=== PATIENT | male | born 1945 | race Caucasian/White ===

== ENCOUNTER 2020-01-04 17:29 | Inpatient (IN) ==
--- NOTE | 2020-01-04 17:47 | ED.PDOC ---
General ED Provider: Dr. FRIDA GARCIA Chief Complaint: Shortness of Air Stated Complaint: Shortness of breath. Family advised paramedics patient fell earlier and injured rt knee. Pt denies injury. EMS reports O 2 sat decreased to 30-40 % upon arrival.Pts daughter states pt normally hypoxic with O2 stats running in the 60s-70s .No home oxygen. He was found lying in the floor and lips were cyanotic PMHx, HTN ,COPD ?CHF Time Seen by Physician: 17:30 Mode of Arrival: Ambulance Information Source: Patient Exam Limitations: Clinical condition Primary Care Provider: ANGY DANIELSON Nursing and Triage Documentation Reviewed and Agree: Yes Does patient meet sepsis criteria?: No System Inflammatory Response Syndrome: Not Applicable Sepsis Protocol: For patient's 13 years and over: Temp is 96.8 and below OR 101 and greater Pulse >90 BPM Resp >20/minute Acutely Altered Mental Status Are patient's symptoms suggestive of a new infection, such as: -Pneumonia -Skin, Soft Tissue -Endocarditis -UTI -Bone, Joint Infection -Implantable Device -Acute Abdominal Infection -Wound Infection -Meningitis -Blood Stream Catheter Infection -Unknown Respiratory Complaint Exam Shortness of Air Complaint/Exam Onset/Duration: Chronically Symptoms Are: Still present Timing: Constant Initial Severity: Moderate Current Severity: Moderate Character: Reports Dyspnea at rest Aggravating: Reports Movement Alleviating: Reports Oxygen Review of Systems Review Of Systems Constitutional: Reports Weakness, Sweats and Loss of appetite Eyes: Reports No symptoms Ears, Nose, Mouth, Throat: Reports No symptoms Respiratory: Reports Cough, Orthopnea and Short of air Cardiac: Reports Edema GI: Reports No symptoms : Reports No symptoms Musculoskeletal: Reports No symptoms Skin: Reports No symptoms Neurological: Reports No symptoms Endocrine: Reports No symptoms Hematologic/Lymphatic: Reports No symptoms All Other Systems: Reviewed and Negative [facility] Medical History High cholesterol Hypertension Traumatic brain injury Social History Smoking and tobacco status: Never smoker Alcohol intake: never History of recent travel: No Physical Exam Physical Exam Appearance: Reports Ill-appearing and Obese Ill-appearing: Moderate Pain Distress: Mild Eyes: Reports SHERIN, EOMI and Conjunctiva clear ENT: Reports Ears normal, Nose normal and Oropharynx normal Respiratory: Reports Airway patent, Breath sounds clear, Breath sounds equal and Breath sounds diminished; Denies Crackles, Wheezes and Retractions Cardiovascular: Reports RRR, Pulses normal, No rub and No murmur GI/: Reports Soft, Nontender, No masses, Bowel sounds normal and No Organomegaly Musculoskeletal: Reports Normal strength, ROM intact, No edema and No calf tenderness Skin: Reports Warm, Dry, Normal color and Other (area of rt ankle eval and appears to be well healed.) Neurological: Reports Sensation intact, Motor intact, Reflexes intact, Cranial nerves intact, Alert and Oriented Psychiatric: Reports Affect appropriate and Mood appropriate Interpretation Radiology Interpretation Exam Interpreted: Portable CXR (Prominent cardiomediastinal silhouette with prominence in the hilum with ground-glass and may represent bronchitis versus mild pulmonary vascular congestion.) and Other (Doppler Flow Lower Extrem:Obstructing thrombus of the popliteal and peroneal veins on the left. Remainder of the Visualized vessels are patent to spontaneous flow, compression and augmentation. ) EKG Interpretation Time of EKG #1: 17:53 Rate: Normal Rhythm: Sinus Ectopy: None Nixon: Left ST Segment: Normal Interpretation: NSR, LAD Physician Notification Case Discussed Physician Notified: Dr Wallace pts daughter desired Time of Notification: 17:00 Physician Notified: Dr Mckeon patient through admission Time of Notification: 19:00 Critical Care Note Critical Care Note Total Critical Care Time (mins): 60 Course Course Hematology/Chemistry: 01/09/20 04:50 01/09/20 04:50 Orders, Labs, Meds: Lab Review 01/04/20 01/04/20 01/04/20 17:50 18:06 18:06 WBC 9.04 RBC 5.70 Hgb 16.8 Hct 56.7 H MCV 99.5 H MCH 29.5 MCHC 29.6 L RDW Coeff of Salud 14.1 Plt Count 187 Immature Gran % (Auto) 0.6 Neut % (Auto) 81.7 H Lymph % (Auto) 9.3 L [place] % (Auto) 8.0 Eos % (Auto) 0.2 Baso % (Auto) 0.2 Neut # (Auto) 7.4 H Lymph # (Auto) 0.8 [place] # (Auto) 0.7 Eos # (Auto) 0.0 Baso # (Auto) 0.0 Immature Gran # (Auto) 0.1 Puncture Site L rad O2 Saturation 82.0 L ABG pH 7.284 L* ABG pCO2 86.9 H ABG pO2 56.0 L* ABG HCO3 41.2 H ABG Total CO2 44 H ABG Base Excess 14 H Forrest Test + O2 Delivery Device Nc Oxygen Liter Flow 2.00 FiO2 % Sodium 140.3 Potassium 4.23 Chloride 93.2 L Carbon Dioxide 37.8 H Anion Gap 13.53 BUN 41.7 H Creatinine 1.34 H Estimated GFR (MDRD) 52.00 BUN/Creatinine Ratio 31.11 Glucose 136.8 H Lactic Acid Calcium 8.60 Total Bilirubin 1.49 H AST 49.4 ALT 20.0 Alkaline Phosphatase 78.5 Total Creatine Kinase 341.6 H CK-MB (CK-2) 2.520 H CK-MB (CK-2) % 0.7300 Troponin I 0.122 H NT-Pro-B Natriuret Pep Total Protein 8.40 H Albumin 4.10 Globulin 4.30 Albumin/Globulin Ratio 0.95 Procalcitonin D-Dimer 01/04/20 01/04/20 01/04/20 18:06 18:06 18:06 WBC RBC Hgb Hct MCV MCH MCHC RDW Coeff of Salud Plt Count Immature Gran % (Auto) Neut % (Auto) Lymph % (Auto) [place] % (Auto) Eos % (Auto) Baso % (Auto) Neut # (Auto) Lymph # (Auto) [place] # (Auto) Eos # (Auto) Baso # (Auto) Immature Gran # (Auto) Puncture Site O2 Saturation ABG pH ABG pCO2 ABG pO2 ABG HCO3 ABG Total CO2 ABG Base Excess Forrest Test O2 Delivery Device Oxygen Liter Flow FiO2 % Sodium Potassium Chloride Carbon Dioxide Anion Gap BUN Creatinine Estimated GFR (MDRD) BUN/Creatinine Ratio Glucose Lactic Acid 1.32 Calcium Total Bilirubin AST ALT Alkaline Phosphatase Total Creatine Kinase CK-MB (CK-2) CK-MB (CK-2) % Troponin I NT-Pro-B Natriuret Pep Total Protein Albumin Globulin Albumin/Globulin Ratio Procalcitonin 0.21 D-Dimer 3942.68 H 01/04/20 01/04/20 18:40 19:05 WBC RBC Hgb Hct MCV MCH MCHC RDW Coeff of Salud Plt Count Immature Gran % (Auto) Neut % (Auto) Lymph % (Auto) [place] % (Auto) Eos % (Auto) Baso % (Auto) Neut # (Auto) Lymph # (Auto) [place] # (Auto) Eos # (Auto) Baso # (Auto) Immature Gran # (Auto) Puncture Site Rrad O2 Saturation 88.0 L ABG pH 7.289 L* ABG pCO2 84.7 H ABG pO2 65.0 L ABG HCO3 40.6 H ABG Total CO2 43 H ABG Base Excess 14 H Forrest Test + O2 Delivery Device Vapo-therm Oxygen Liter Flow FiO2 % 50.0 Sodium Potassium Chloride Carbon Dioxide Anion Gap BUN Creatinine Estimated GFR (MDRD) BUN/Creatinine Ratio Glucose Lactic Acid Calcium Total Bilirubin AST ALT Alkaline Phosphatase Total Creatine Kinase CK-MB (CK-2) CK-MB (CK-2) % Troponin I NT-Pro-B Natriuret Pep 0.000 H Total Protein Albumin Globulin Albumin/Globulin Ratio Procalcitonin D-Dimer Orders Category Date Time Status ADMIT PATIENT INPATIENT .TO [facility] (MONITORED BED) ADMISSION 01/04/20 19:56 Completed ABG DRAW REQUEST Stat CARDIO 01/04/20 17:50 Completed ABG DRAW REQUEST Stat CARDIO 01/04/20 19:06 Completed EKG-(ED ONLY) Stat CARDIO 01/04/20 17:50 Completed METERED DOSE INHALATION Routine CARDIO 01/04/20 17:49 Completed VAPOTHERM Routine CARDIO 01/04/20 17:53 Completed ACTIVITY TID CARE 01/04/20 19:59 Completed BLOOD GLUCOSE MONITORING 0630,1100,1700,2100 CARE 01/04/20 20:00 Completed INTAKE & OUTPUT Q8HR CARE 01/04/20 19:59 Completed NPO REMINDER: IMAGING ONCE CARE 01/04/20 19:40 Completed TELEMETRY MONITORING TELE CARE 01/04/20 19:57 Completed VITAL SIGNS Q8HR CARE 01/04/20 19:59 Completed 2 GRAM SODIUM DIET DIETARY 01/04/20 Breakfast Completed IV [ED IV/MEDIPORT/POWERPORT] .ONCE EMERGENCY 01/04/20 17:57 Completed ABG Stat LAB 01/04/20 17:50 Completed ABG Stat LAB 01/04/20 19:05 Completed BLOOD CULTURE (ED ONLY) Stat LAB 01/04/20 18:06 Completed CBC W/ AUTO DIFF DAILY@0600 LAB 01/05/20 02:00 Completed CBC W/ AUTO DIFF DAILY@0600 LAB 01/06/20 04:35 Completed CBC W/ AUTO DIFF Stat LAB 01/04/20 18:06 Completed CMP [COMPREHENSIVE METABOLIC PANEL] Stat LAB 01/04/20 18:06 Completed COMPREHENSIVE METABOLIC PANEL DAILY@0600 LAB 01/06/20 04:35 Completed CREATINE KINASE Stat LAB 01/04/20 18:06 Completed D-DIMER Stat LAB 01/04/20 18:06 Completed FLU A & B MOLECULAR [FLU A/B MOLECULAR] Stat LAB 01/04/20 23:15 Completed LACTIC ACID Stat LAB 01/04/20 18:06 Completed NT-PROBNP Stat LAB 01/04/20 18:40 Completed PROCALCITONIN Stat LAB 01/04/20 18:06 Completed TROPONIN I Q8H LAB 01/05/20 02:00 Completed TROPONIN I Q8H LAB 01/05/20 10:10 Completed TROPONIN I Stat LAB 01/04/20 18:06 Completed 0.9 % Sodium Chloride [Saline Flush] MEDS 01/04/20 17:57 Discontinued 1 syr IVF PRN PRN Acetaminophen [Tylenol] MEDS 01/04/20 19:59 Discontinued 650 mg PO Q4H PRN Albuterol Inhaler(with Spacer) [Ventolin Hfa (Per Puff- MEDS 01/04/20 17:49 Discontinued with Spacer)] 2 puff IH ONCE STA Enoxaparin Sodium [Lovenox] MEDS 01/04/20 19:35 Discontinued 100 mg SUBCUT ONCE STA Furosemide [Lasix] MEDS 01/04/20 19:28 Discontinued 20 mg IVP ONCE STA Methylprednisolone Sod Succ/Pf [Solu-Medrol 125 mg] MEDS 01/04/20 18:03 Discontinued 125 mg IVP ONCE STA RESUSCITATION STATUS Routine OTHERS 01/04/20 19:59 Completed CHEST, 1V AP ONLY Stat RADS 01/04/20 17:[address] CHEST PE PROTOCOL Stat RADS 01/04/20 19:40 Completed Medications Discontinued Medications Generic Name Dose Route Start Last Admin Trade Name Freq PRN Reason Stop Dose Admin Acetaminophen 650 mg 01/04/20 19:59 01/08/20 10:13 Acetaminophen 325 Mg Tablet PO 650 mg Q4H PRN Administration Pain Albuterol Sulfate 2 puff 01/04/20 17:49 01/04/20 19:01 Albuterol Sulfate (Ventolin Hfa) 18 Gm 1 Puff With Spacer IH 01/04/20 17:50 2 puff ONCE STA Administration Amlodipine Besylate 5 mg 01/05/20 09:00 01/09/20 09:18 Amlodipine Besylate 5 Mg Tablet PO 5 mg DAILY SILVERIO Administration Apixaban 10 mg 01/06/20 09:00 01/09/20 09:19 Apixaban 5 Mg Tab PO 01/12/20 22:00 10 mg BID SILVERIO Administration Apixaban 10 mg 01/09/20 17:19 01/09/20 17:37 Apixaban 5 Mg Tab PO 01/09/20 17:20 10 mg ONCE STA Administration Atorvastatin Calcium 10 mg 01/05/20 09:00 01/09/20 09:18 Atorvastatin Calcium 10 Mg Tablet PO 10 mg DAILY SILVERIO Administration Doxycycline Hyclate 100 mg 01/05/20 09:00 01/05/20 09:45 Doxycycline Hyclate 100 Mg Capsule PO 01/08/20 08:59 Not Given BID SILVERIO Doxycycline Hyclate 100 mg 01/09/20 17:20 01/09/20 17:37 Doxycycline Hyclate 100 Mg Capsule PO 01/09/20 17:21 100 mg ONCE ONE Administration Enoxaparin Sodium 100 mg 01/04/20 19:35 01/04/20 20:00 Enoxaparin Sodium 100 Mg/Ml Syr SUBCUT 01/04/20 19:36 100 mg ONCE STA Administration Enoxaparin Sodium 120 mg 01/05/20 09:00 01/05/20 20:39 Enoxaparin Sodium 150 Mg/Ml Syr SUBCUT 120 mg Q12HR SILVERIO Administration Furosemide 20 mg 01/04/20 19:28 01/04/20 19:58 Furosemide Inj 20 Mg/2 Ml Vial IVP 01/04/20 19:29 20 mg ONCE STA Administration Hydrochlorothiazide 12.5 mg 01/05/20 09:00 01/09/20 09:19 Hydrochlorothiazide 25 Mg Tablet PO 12.5 mg DAILY SILVERIO Administration Methylprednisolone Sodium Succinate 125 mg 01/04/20 18:03 01/04/20 18:29 Methylprednisolone Sod Succ/Pf 125 Mg/2 Ml Vial IVP 01/04/20 18:04 125 mg ONCE STA Administration Sodium Chloride 1 syr 01/04/20 17:57 01/04/20 18:30 0.9% Sodium Chloride 10 Ml Disp.Syrin IVF 1 syr PRN PRN Administration To flush IV Sodium Chloride 1 syr 01/05/20 21:00 01/08/20 13:45 0.9% Sodium Chloride 10 Ml Disp.Syrin IVF 1 syr Q8HR SILVERIO Administration Vital Signs: Temp Pulse Resp BP Pulse Ox 01/04/20 18:16 92 L 01/04/20 17:29 98.5 F 93 H 24 137/94 H 85 L Discharge Plan Discharge Patient Disposition: ADMITTED INPATIENT Discharge Problem: Respiratory failure, CHF (congestive heart failure), DVT (deep venous thrombos is) ED Provider: FRIDA GARCIA Condition: Poor Physician Progress Note: [] Additional Comments Additional Comments: Discussed case with Dr Morfin who agreed to accept patient. Patients daughter who is present advised he is a DNR and Refuse consideration of transfer to a higher level of care([facility]). Prefers pt be admitted at [facility]. Has been under care of wound care and regarding Rt ankle wound and was recently released. Additional Information: Daughter present and advised she did not want pt transferred to [facility] Has a DNR in place
[2020-01-04] MEDS ORDERED: VENTOLIN HFA (PER PUFF-WITH SPACER) IH STA (17:49)
[2020-01-04] MEDS ORDERED: SOLU-MEDROL 125 MG IVP STA (18:03)
[2020-01-04 18:09] LABS: BASOPHILS % (AUTO) 0.2 % (0.0-3.0); EOSINOPHILS % (AUTO) 0.2 % (0.0-7.0); HEMATOCRIT 56.7 % (42.0-52.0); HEMOGLOBIN 16.8 g/dl (14.0-18.0); IMMATURE GRANULOCYTE # (AUTO) 0.1 (0.0-1.0); IMMATURE GRANULOCYTE % (AUTO) 0.6 % (0.0-5.0); LYMPHOCYTES # (AUTO) 0.8 K/uL (0.60-3.4); LYMPHOCYTES % (AUTO) 9.3 (10.0-50.0); MEAN CORPUSCULAR HEMOGLOBIN 29.5 pg (27.0-31.0); MEAN CORPUSCULAR HGB CONC 29.6 (31.8-35.4); MEAN CORPUSCULAR VOLUME 99.5 fl (80.0-94.0); MONOCYTES # (AUTO) 0.7 K/uL (0.4-2.0); NEUTROPHILS # (AUTO) 7.4 K/ul (2.0-6.9); NEUTROPHILS % (AUTO) 81.7 % (42.2-75.2); PLATELET COUNT 187 10^3/uL (140-440); RDW COEFFICIENT OF VARIATION 14.1 % (11.6-14.8); WHITE BLOOD COUNT 9.04 K/ul (4.2-10.2)
[2020-01-04 18:22] LABS: ALBUMIN 4.1 g/dL (3.5-5.0); ALKALINE PHOSPHATASE 78.5 U/L (56-119); ASPARTATE AMINO TRANSFERASE 49.4 U/L (17-59); BILIRUBIN,TOTAL 1.49 mg/dL (0.2-1.3); BLOOD UREA NITROGEN 41.7 mg/dL (9-20); CALCIUM 8.6 mg/dL (8.4-10.2); CHLORIDE 93.2 mmol/L (98-107); CREATINE KINASE 341.6 U/L (55-170); CREATININE 1.34 mg/dL (0.60-1.10); GLUCOSE 136.8 mg/dL (74-106); POTASSIUM 4.23 mmol/L (3.5-5.1); SODIUM 140.3 mmol/L (134.5-145); TOTAL PROTEIN 8.4 g/dL (6.3-8.2)
[2020-01-04 18:23] LABS: ABG BASE EXCESS 14 (-2.0-2.0); ABG PCO2 86.9 mmHg (35-45); ABG PH 7.284 (7.35-7.45)
[2020-01-04 18:24] LABS: ABG HCO3 41.2 (22.0-26.0); ABG TCO2 44 (22.0-28.0)
[2020-01-04 18:28] LABS: CARBON DIOXIDE 37.8 mmol/L (22-30.0)
[2020-01-04 18:33] LABS: TROPONIN I 0.122 ng/ml (0.0000-0.120)
[2020-01-04 18:39] LABS: CREATINE KINASE MB 2.52 ng/ml (0.0-2.38)
[2020-01-04 19:25] LABS: ABG PH 7.289 (7.35-7.45)
[2020-01-04 19:26] LABS: ABG BASE EXCESS 14 (-2.0-2.0); ABG HCO3 40.6 (22.0-26.0); ABG PCO2 84.7 mmHg (35-45); ABG TCO2 43 (22.0-28.0)
--- NOTE | 2020-01-04 19:26 | DI ---
EXAM: Single frontal view of the chest HISTORY: Dyspnea. COMPARISON: Chest x-ray 12/18/2013 FINDINGS: Cardiomediastinal silhouette is mildly enlarged. There is no pneumothorax or effusion. Th ere is no consolidation, nodule or mass. There is mild central hilar prominence and ground-glass. Th e osseous structures are unremarkable. IMPRESSION: Prominent cardiomediastinal silhouette with prominence in the hilum with ground-glass and may represe nt bronchitis versus mild pulmonary vascular congestion.
[2020-01-04] MEDS ORDERED: LASIX IVP STA (19:28)
[2020-01-04] MEDS ORDERED: LOVENOX SUBCUT STA (19:35)
--- NOTE | 2020-01-04 21:25 | CT ---
EXAM: CT angiogram chest with intravenous contrast 01/04/2020. Multi planar reformatted images obta ined. MIP and three-dimensional reconstructed images provided HISTORY: Shortness of a air. Elevated D-dimer COMPARISON: 01/04/2020, 12/08/2013 FINDINGS: Moderate cardiomegaly. There are multiple pulmonary arterial filling defects extending to the right upper, right middle and right lower lobe. No large left-sided embolus. Small subsegmental arterial branches are obscured du e to motion. Bilateral dependent consolidation may represent a combination of atelectasis and/or pneumonia. Pulmo nary infarcts not excluded. No pleural effusion. No pneumothorax. Limited views of the upper abdomen shows no acute process. No acute osseous abnormality. IMPRESSION: 1. Multiple right-sided pulmonary emboli. 2. Moderate cardiomegaly 3. Bilateral multifocal consolidation may represent a combination of atelectasis and/or pneumonia. Infarcts not excluded. Critical FINDINGS: I personally discussed the findings of multiple right-sided pulmonary emboli with HELENA Kingsley, 01/04/2020, 9:18 p.m.
[2020-01-04 22:07] VITALS: BMI 46.7
[2020-01-04 23:32] LABS: MOLECULAR FLU A NEGATIVE BY NAAT (NEGATIVE); MOLECULAR FLU B NEGATIVE BY NAAT (NEGATIVE)
[2020-01-05 02:05] LABS: BASOPHILS % (AUTO) 0.2 % (0.0-3.0); HEMATOCRIT 57.6 % (42.0-52.0); HEMOGLOBIN 16.8 g/dl (14.0-18.0); IMMATURE GRANULOCYTE # (AUTO) 0.1 (0.0-1.0); IMMATURE GRANULOCYTE % (AUTO) 0.5 % (0.0-5.0); LYMPHOCYTES # (AUTO) 0.6 K/uL (0.60-3.4); LYMPHOCYTES % (AUTO) 6.9 (10.0-50.0); MEAN CORPUSCULAR HEMOGLOBIN 29.3 pg (27.0-31.0); MEAN CORPUSCULAR HGB CONC 29.2 (31.8-35.4); MEAN CORPUSCULAR VOLUME 100.5 fl (80.0-94.0); MONOCYTES # (AUTO) 0.1 K/uL (0.4-2.0); MONOCYTES % (AUTO) 1.2 (0-10); NEUTROPHILS # (AUTO) 8.4 K/ul (2.0-6.9); NEUTROPHILS % (AUTO) 91.2 % (42.2-75.2); PLATELET COUNT 171 10^3/uL (140-440); RDW COEFFICIENT OF VARIATION 13.9 % (11.6-14.8); RED BLOOD COUNT 5.73 10^6/ul (4.70-6.10); WHITE BLOOD COUNT 9.17 K/ul (4.2-10.2)
[2020-01-05 02:17] LABS: ALANINE AMINOTRANSFERASE 22.6 U/L (0-50); ALBUMIN 4.12 g/dL (3.5-5.0); ALKALINE PHOSPHATASE 74.5 U/L (56-119); ASPARTATE AMINO TRANSFERASE 44.9 U/L (17-59); BILIRUBIN,TOTAL 1.18 mg/dL (0.2-1.3); BLOOD UREA NITROGEN 41.9 mg/dL (9-20); CALCIUM 8.48 mg/dL (8.4-10.2); CARBON DIOXIDE 39.4 mmol/L (22-30.0); CHLORIDE 94.9 mmol/L (98-107); CREATININE 1.28 mg/dL (0.60-1.10); GLUCOSE 182.4 mg/dL (74-106); POTASSIUM 4.79 mmol/L (3.5-5.1); SODIUM 140.9 mmol/L (134.5-145); TOTAL PROTEIN 8.38 g/dL (6.3-8.2)
[2020-01-05 02:29] LABS: TROPONIN I 0.09 ng/ml (0.0000-0.120)
[2020-01-05 05:03] LABS: ABG BASE EXCESS 13 (-2.0-2.0); ABG HCO3 41.8 (22.0-26.0); ABG PCO2 116.9 mmHg (35-45); ABG PH 7.162 (7.35-7.45); ABG TCO2 45 (22.0-28.0)
[2020-01-05 05:57] LABS: ABG PCO2 100.8 mmHg (35-45); ABG PH 7.222 (7.35-7.45)
[2020-01-05 05:58] LABS: ABG BASE EXCESS 14 (-2.0-2.0); ABG HCO3 41.5 (22.0-26.0); ABG TCO2 45 (22.0-28.0)
[2020-01-05 07:07] LABS: ABG BASE EXCESS 18.1 (-2.0-2.0); ABG PH 7.21 (7.35-7.45)
[2020-01-05 07:08] LABS: ABG OXYGEN SATURATION 95.5 % (95-100); ABG TCO2 49.5 (22.0-28.0)
[2020-01-05 08:34] LABS: ABG PH 7.23 (7.35-7.45)
[2020-01-05 08:35] LABS: ABG BASE EXCESS 18 (-2.0-2.0); ABG HCO3 45.6 (22.0-26.0); ABG OXYGEN SATURATION 94.3 % (95-100); ABG TCO2 48.9 (22.0-28.0)
[2020-01-05] MEDS ORDERED: DOXYCYCLINE HYCLATE PO SCH (09:00)
[2020-01-05] MEDS ORDERED: SODIUM CHLORIDE 1,000 ML IV SCH (09:00)
[2020-01-05] MEDS: LIPITOR PO SCH (09:55)
[2020-01-05] MEDS: NORVASC PO SCH (09:55)
[2020-01-05] MEDS: HYDROCHLOROTHIAZIDE PO SCH (09:55)
[2020-01-05] MEDS: LOVENOX SUBCUT SCH ×2 (10:10→20:39)
--- NOTE | 2020-01-05 12:34 | US ---
Bilateral lower extremity venous Doppler HISTORY: Pain and tenderness Bilateral lower extremity. TECHNIQUE: Color, grayscale and spectral Doppler of Lower Extremity Veins. FINDINGS: Lower extremity venous structures examined for spontaneous flow, compression and augmentat ion. The common femoral vein, and greater saphenous, profunda, femoral, popliteal, peroneal, anterio r tibial and posterior tibial veins were examined. Obstructing thrombus of the popliteal and peronea l veins on the left. Remainder of the Visualized vessels are patent to spontaneous flow, compression and augmentation. IMPRESSION: 1.. Critical result: Obstructing thrombus of the left popliteal and peroneal vein. 2. No venous thrombus seen on the right. The ultra sound technician documented positive results were given to patient nurse at at the end of exam.
--- NOTE | 2020-01-05 12:40 | US ---
EXAM: Ultrasound venous Doppler bilateral upper extremity HISTORY: The blood clots COMPARISON: None TECHNIQUE: Venous Doppler of the bilateral upper extremity veins was performed with duplex imaging u sing color, corey-scale and Doppler flow imaging. FINDINGS: There is normal color flow and compression of the bilateral jugular, subclavian, axillary, brachial, cephalic, radial, and ulnar vein without evidence of intraluminal thrombus. Right basilic vein not visualized. Visualized left basilic vein trace normal compression and flow. Distal left b asilic and cephalic vein is not visualized. There is no reflux identified. IMPRESSION: No evidence of DVT within the bilateral upper extremities.
--- NOTE | 2020-01-05 20:29 | PCM ---
Chief Complaint Chief Complaint: "hes sob" History of Present Illness History of Present Illness: This is a 74 yr old male with hx of TBI, copd , obesity, htn and chf who presented to the ed by ems in resp failure. Subsequent evaluation reveals pulmonary embolism. Family declines transfer for consideation for EKOS and agreeable to tx here with lovenox and they undestand risk of complication. Review of Systems Constitutional: Reports No symptoms Eyes: Reports No symptoms Ears: Reports No symptoms Nose: Reports No symptoms Throat: Reports No symptoms Mouth: Reports No symptoms Respiratory: Reports Shortness of air Cardiovascular: Reports No symptoms Gastrointestinal: Reports No symptoms Genitourinary: Reports No symptoms Neurological: Reports No symptoms Musculoskeletal: Reports No symptoms Skin: Reports No symptoms Immunology: Reports No symptoms Hematology: Reports No symptoms Endocrine: Reports No symptoms Psychiatric: Reports Anxiety Habits: Reports Tobacco use Allergies Allergies Allergy/AdvReac Type Severity Reaction Status Date / Time No Known Allergies Allergy Verified 01/04/20 17:48 PFS Medical History High cholesterol Hypertension Traumatic brain injury Social History Smoking and tobacco status: Never smoker Alcohol intake: never History of recent travel: No Medications Medications: Medications Generic Name Dose Route Start Last Admin Trade Name Freq PRN Reason Stop Dose Admin Acetaminophen 650 mg 01/04/20 19:59 Acetaminophen 325 Mg Tablet PO Q4H PRN Pain Amlodipine Besylate 5 mg 01/05/20 09:00 01/05/20 09:55 Amlodipine Besylate 5 Mg Tablet PO 5 mg DAILY SILVERIO Administration Atorvastatin Calcium 10 mg 01/05/20 09:00 01/05/20 09:55 Atorvastatin Calcium 10 Mg Tablet PO 10 mg DAILY SILVERIO Administration Enoxaparin Sodium 120 mg 01/05/20 09:00 01/05/20 10:10 Enoxaparin Sodium 150 Mg/Ml Syr SUBCUT 120 mg Q12HR SILVERIO Administration Hydrochlorothiazide 12.5 mg 01/05/20 09:00 01/05/20 09:55 Hydrochlorothiazide 25 Mg Tablet PO 12.5 mg DAILY SILVERIO Administration Sodium Chloride 1 syr 01/04/20 17:57 01/04/20 18:30 0.9% Sodium Chloride 10 Ml Disp.Syrin IVF 1 syr PRN PRN Administration To flush IV Sodium Chloride 1 syr 10/23/20 21:00 0.9% Sodium Chloride 10 Ml Disp.Syrin IVF Q8HR SILVERIO Body Composition Height: 5 ft 9 in Weight: 316 lb 5.813 oz Body Mass Index (BMI): 46.7 Vital Signs Temperature: 98.3 F Pulse Rate: 72 Respiratory Rate: 20 Blood Pressure: 115/68 O2 Sat by Pulse Oximetry: 92 Physical Examination Appearance: Reports Obese Ill-appearing: None Pain Distress: Mild Eyes: Reports SHERIN, EOMI and Conjunctiva clear ENT: Reports Ears normal, Nose normal and Oropharynx normal Neck: Supple Respiratory: Reports Airway patent, Breath sounds clear and Breath sounds equal Cardiovascular: Reports RRR and Pulses normal GI/: Reports Soft and Nontender Musculoskeletal: Reports Normal strength, ROM intact and No edema Skin: Reports Warm, Dry and Normal color Neurological: Reports Sensation intact, Motor intact, Reflexes intact, Cranial nerves intact, Alert and Oriented Psychiatric: Reports Affect appropriate and Mood appropriate Lab/Tests/Diagnostic Imaging Lab/Tests/Diagnostic Imaging: Lab Review 01/04/20 01/04/20 01/04/20 17:50 18:06 18:06 WBC 9.04 RBC 5.70 Hgb 16.8 Hct 56.7 H MCV 99.5 H MCH 29.5 MCHC 29.6 L RDW Coeff of Salud 14.1 Plt Count 187 Immature Gran % (Auto) 0.6 Neut % (Auto) 81.7 H Lymph % (Auto) 9.3 L Leslie % (Auto) 8.0 Eos % (Auto) 0.2 Baso % (Auto) 0.2 Neut # (Auto) 7.4 H Lymph # (Auto) 0.8 Leslie # (Auto) 0.7 Eos # (Auto) 0.0 Baso # (Auto) 0.0 Immature Gran # (Auto) 0.1 Puncture Site L rad O2 Saturation 82.0 L ABG pH 7.284 L* ABG pCO2 86.9 H ABG pO2 56.0 L* ABG HCO3 41.2 H ABG Total CO2 44 H ABG Base Excess 14 H Forrest Test + O2 Delivery Device Nc Oxygen Liter Flow 2.00 FiO2 % Sodium 140.3 Potassium 4.23 Chloride 93.2 L Carbon Dioxide 37.8 H Anion Gap 13.53 BUN 41.7 H Creatinine 1.34 H Estimated GFR (MDRD) 52.00 BUN/Creatinine Ratio 31.11 Glucose 136.8 H Lactic Acid Calcium 8.60 Total Bilirubin 1.49 H AST 49.4 ALT 20.0 Alkaline Phosphatase 78.5 Total Creatine Kinase 341.6 H CK-MB (CK-2) 2.520 H CK-MB (CK-2) % 0.7300 Troponin I 0.122 H NT-Pro-B Natriuret Pep Total Protein 8.40 H Albumin 4.10 Globulin 4.30 Albumin/Globulin Ratio 0.95 Procalcitonin D-Dimer Influ A Molecular Assay Influ B Molecular Assay 01/04/20 01/04/20 01/04/20 18:06 18:06 18:06 WBC RBC Hgb Hct MCV MCH MCHC RDW Coeff of Salud Plt Count Immature Gran % (Auto) Neut % (Auto) Lymph % (Auto) Leslie % (Auto) Eos % (Auto) Baso % (Auto) Neut # (Auto) Lymph # (Auto) Leslie # (Auto) Eos # (Auto) Baso # (Auto) Immature Gran # (Auto) Puncture Site O2 Saturation ABG pH ABG pCO2 ABG pO2 ABG HCO3 ABG Total CO2 ABG Base Excess Forrest Test O2 Delivery Device Oxygen Liter Flow FiO2 % Sodium Potassium Chloride Carbon Dioxide Anion Gap BUN Creatinine Estimated GFR (MDRD) BUN/Creatinine Ratio Glucose Lactic Acid 1.32 Calcium Total Bilirubin AST ALT Alkaline Phosphatase Total Creatine Kinase CK-MB (CK-2) CK-MB (CK-2) % Troponin I NT-Pro-B Natriuret Pep Total Protein Albumin Globulin Albumin/Globulin Ratio Procalcitonin 0.21 D-Dimer 3942.68 H Influ A Molecular Assay Influ B Molecular Assay 01/04/20 01/04/20 01/04/20 18:40 19:05 23:15 WBC RBC Hgb Hct MCV MCH MCHC RDW Coeff of Salud Plt Count Immature Gran % (Auto) Neut % (Auto) Lymph % (Auto) Leslie % (Auto) Eos % (Auto) Baso % (Auto) Neut # (Auto) Lymph # (Auto) Leslie # (Auto) Eos # (Auto) Baso # (Auto) Immature Gran # (Auto) Puncture Site Rrad O2 Saturation 88.0 L ABG pH 7.289 L* ABG pCO2 84.7 H ABG pO2 65.0 L ABG HCO3 40.6 H ABG Total CO2 43 H ABG Base Excess 14 H Forrest Test + O2 Delivery Device Vapo-therm Oxygen Liter Flow FiO2 % 50.0 Sodium Potassium Chloride Carbon Dioxide Anion Gap BUN Creatinine Estimated GFR (MDRD) BUN/Creatinine Ratio Glucose Lactic Acid Calcium Total Bilirubin AST ALT Alkaline Phosphatase Total Creatine Kinase CK-MB (CK-2) CK-MB (CK-2) % Troponin I NT-Pro-B Natriuret Pep 2050.000 H Total Protein Albumin Globulin Albumin/Globulin Ratio Procalcitonin D-Dimer Influ A Molecular Assay Negative by naat Influ B Molecular Assay Negative by naat 01/05/20 01/05/20 01/05/20 02:00 02:00 05:01 WBC 9.17 RBC 5.73 Hgb 16.8 Hct 57.6 H MCV 100.5 H MCH 29.3 MCHC 29.2 L RDW Coeff of Salud 13.9 Plt Count 171 Immature Gran % (Auto) 0.5 Neut % (Auto) 91.2 H Lymph % (Auto) 6.9 L Leslie % (Auto) 1.2 Eos % (Auto) 0.0 Baso % (Auto) 0.2 Neut # (Auto) 8.4 H Lymph # (Auto) 0.6 Leslie # (Auto) 0.1 L Eos # (Auto) 0.0 Baso # (Auto) 0.0 Immature Gran # (Auto) 0.1 Puncture Site Rb O2 Saturation 89.0 L ABG pH 7.162 L* ABG pCO2 116.9 H ABG pO2 78.0 L ABG HCO3 41.8 H ABG Total CO2 45 H ABG Base Excess 13 H Forrest Test + O2 Delivery Device Vapotherm Oxygen Liter Flow FiO2 % 50.0 Sodium 140.9 Potassium 4.79 Chloride 94.9 L Carbon Dioxide 39.4 H Anion Gap 11.39 BUN 41.9 H Creatinine 1.28 H Estimated GFR (MDRD) 55.00 BUN/Creatinine Ratio 32.73 Glucose 182.4 H Lactic Acid Calcium 8.48 Total Bilirubin 1.18 AST 44.9 ALT 22.6 Alkaline Phosphatase 74.5 Total Creatine Kinase CK-MB (CK-2) CK-MB (CK-2) % Troponin I 0.090 NT-Pro-B Natriuret Pep Total Protein 8.38 H Albumin 4.12 Globulin 4.26 Albumin/Globulin Ratio 0.96 Procalcitonin D-Dimer Influ A Molecular Assay Influ B Molecular Assay 01/05/20 01/05/20 01/05/20 05:44 07:05 08:33 WBC RBC Hgb Hct MCV MCH MCHC RDW Coeff of Salud Plt Count Immature Gran % (Auto) Neut % (Auto) Lymph % (Auto) Leslie % (Auto) Eos % (Auto) Baso % (Auto) Neut # (Auto) Lymph # (Auto) Leslie # (Auto) Eos # (Auto) Baso # (Auto) Immature Gran # (Auto) Puncture Site Rb Rbrach Rbrach O2 Saturation 79.0 L 95.5 94.3 L ABG pH 7.222 L* 7.21 L* 7.23 L* ABG pCO2 100.8 H 115.0 H 109.0 H ABG pO2 56.0 L* 81.0 L 69.0 L ABG HCO3 41.5 H 46.0 H 45.6 H ABG Total CO2 45 H 49.5 H 48.9 H ABG Base Excess 14 H 18.1 H 18 H Forrest Test + O2 Delivery Device Bipap Bipap Bipap Oxygen Liter Flow FiO2 % 50.0 80.0 80.0 Sodium Potassium Chloride Carbon Dioxide Anion Gap BUN Creatinine Estimated GFR (MDRD) BUN/Creatinine Ratio Glucose Lactic Acid Calcium Total Bilirubin AST ALT Alkaline Phosphatase Total Creatine Kinase CK-MB (CK-2) CK-MB (CK-2) % Troponin I NT-Pro-B Natriuret Pep Total Protein Albumin Globulin Albumin/Globulin Ratio Procalcitonin D-Dimer Influ A Molecular Assay Influ B Molecular Assay 01/05/20 10:10 WBC RBC Hgb Hct MCV MCH MCHC RDW Coeff of Salud Plt Count Immature Gran % (Auto) Neut % (Auto) Lymph % (Auto) Leslie % (Auto) Eos % (Auto) Baso % (Auto) Neut # (Auto) Lymph # (Auto) Leslie # (Auto) Eos # (Auto) Baso # (Auto) Immature Gran # (Auto) Puncture Site O2 Saturation ABG pH ABG pCO2 ABG pO2 ABG HCO3 ABG Total CO2 ABG Base Excess Forrest Test O2 Delivery Device Oxygen Liter Flow FiO2 % Sodium Potassium Chloride Carbon Dioxide Anion Gap BUN Creatinine Estimated GFR (MDRD) BUN/Creatinine Ratio Glucose Lactic Acid Calcium Total Bilirubin AST ALT Alkaline Phosphatase Total Creatine Kinase CK-MB (CK-2) CK-MB (CK-2) % Troponin I 0.054 NT-Pro-B Natriuret Pep Total Protein Albumin Globulin Albumin/Globulin Ratio Procalcitonin D-Dimer Influ A Molecular Assay Influ B Molecular Assay Orders Category Date Time Status ADMIT PATIENT INPATIENT .TO [facility] (MONITORED BED) ADMISSION 01/04/20 19:56 Active ABG DRAW REQUEST DAILY@0600 CARDIO 01/07/20 06:00 Ordered ABG DRAW REQUEST Routine CARDIO 01/05/20 07:05 Completed ABG DRAW REQUEST Routine CARDIO 01/05/20 08:33 Completed ABG DRAW REQUEST Stat CARDIO 01/04/20 17:50 Completed ABG DRAW REQUEST Stat CARDIO 01/04/20 19:06 Completed ABG DRAW REQUEST Stat CARDIO 01/05/20 05:44 Completed BIPAP Routine CARDIO 01/05/20 04:48 Active EKG-(ED ONLY) Stat CARDIO 01/04/20 17:50 Completed METERED DOSE INHALATION Routine CARDIO 01/04/20 17:49 Completed VAPOTHERM Routine CARDIO 01/04/20 17:53 Completed ACTIVITY .Complete BR CARE 01/04/20 19:59 Active BLOOD GLUCOSE MONITORING 0630,1100,1700,2100 CARE 01/04/20 20:00 Active INTAKE & OUTPUT Q8HR CARE 01/04/20 19:59 Active NPO REMINDER: IMAGING ONCE CARE 01/04/20 19:40 Completed Notify RT of Treatment ONCE CARE 01/05/20 04:31 Active Notify RT of Treatment ONCE CARE 01/05/20 05:44 Active PHARMACIST CONSULT ONCE CARE 01/04/20 22:07 Active TELEMETRY MONITORING TELE CARE 01/04/20 19:57 Active VITAL SIGNS Q8HR CARE 01/04/20 19:59 Active 2 GRAM SODIUM DIET DIETARY 01/04/20 Breakfast Ordered IV [ED IV/MEDIPORT/POWERPORT] .ONCE EMERGENCY 01/04/20 17:57 Active ABG DAILY@0600 LAB 01/05/20 05:01 Completed ABG DAILY@0600 LAB 01/06/20 06:00 Ordered ABG Routine LAB 01/05/20 07:05 Completed ABG Routine LAB 01/05/20 08:33 Completed ABG Stat LAB 01/04/20 17:50 Completed ABG Stat LAB 01/04/20 19:05 Completed ABG Stat LAB 01/05/20 05:44 Completed BLOOD CULTURE (ED ONLY) Stat LAB 01/04/20 18:06 Results CBC W/ AUTO DIFF DAILY@0600 LAB 01/05/20 02:00 Completed CBC W/ AUTO DIFF DAILY@0600 LAB 01/06/20 06:00 Ordered CBC W/ AUTO DIFF DAILY@0600 LAB 01/07/20 06:00 Ordered CBC W/ AUTO DIFF Stat LAB 01/04/20 18:06 Completed CMP [COMPREHENSIVE METABOLIC PANEL] DAILY@0600 LAB 01/07/20 06:00 Ordered CMP [COMPREHENSIVE METABOLIC PANEL] Stat LAB 01/04/20 18:06 Completed COMPREHENSIVE METABOLIC PANEL DAILY@0600 LAB 01/06/20 06:00 Ordered COMPREHENSIVE METABOLIC PANEL Routine LAB 01/05/20 02:00 Completed CREATINE KINASE Stat LAB 01/04/20 18:06 Completed D-DIMER Stat LAB 01/04/20 18:06 Completed FLU A & B MOLECULAR [FLU A/B MOLECULAR] Stat LAB 01/04/20 23:15 Completed LACTIC ACID Stat LAB 01/04/20 18:06 Completed NT-PROBNP Stat LAB 01/04/20 18:40 Completed PROCALCITONIN Stat LAB 01/04/20 18:06 Completed TROPONIN I Q8H LAB 01/05/20 02:00 Completed TROPONIN I Q8H LAB 01/05/20 10:10 Completed TROPONIN I Stat LAB 01/04/20 18:06 Completed 0.9 % Sodium Chloride [Saline Flush] MEDS 01/04/20 17:57 Active 1 syr IVF PRN PRN 0.9 % Sodium Chloride [Saline Flush] MEDS 01/05/20 21:00 Active 1 syr IVF Q8HR Acetaminophen [Tylenol] MEDS 01/04/20 19:59 Active 650 mg PO Q4H PRN Albuterol Inhaler(with Spacer) [Ventolin Hfa (Per Puff- MEDS 01/04/20 17:49 Discontinued with Spacer)] 2 puff IH ONCE STA Amlodipine Besylate [Norvasc] MEDS 01/05/20 09:00 Active 5 mg PO DAILY Atorvastatin Calcium [Lipitor] MEDS 01/05/20 09:00 Active 10 mg PO DAILY Doxycycline Hyclate MEDS 01/05/20 09:00 Discontinued 100 mg PO BID Enoxaparin Sodium [Lovenox] MEDS 01/04/20 19:35 Discontinued 100 mg SUBCUT ONCE STA Enoxaparin Sodium [Lovenox] MEDS 01/05/20 09:00 Active 120 mg SUBCUT Q12HR Furosemide [Lasix] MEDS 01/04/20 19:28 Discontinued 20 mg IVP ONCE STA Hydrochlorothiazide MEDS 01/05/20 09:00 Active 12.5 mg PO DAILY Methylprednisolone Sod Succ/Pf [Solu-Medrol 125 mg] MEDS 01/04/20 18:03 Discontinued 125 mg IVP ONCE STA RESUSCITATION STATUS Routine OTHERS 01/04/20 19:59 Ordered CHEST, 1V AP ONLY Stat RADS 01/04/20 17:[address] CHEST PE PROTOCOL Stat RADS 01/04/20 19:40 Completed U/S VENOUS SCAN ANTIONE ARMS Routine RADS 01/05/20 06:47 Completed ULTRASOUND VENOUS SCAN ANTIONE LEGS [U/S VENOUS SCAN ANTIONE RADS 01/05/20 06:47 Completed LEGS] Routine OT CONSULTATION Routine THERAPIES 01/04/20 13:20 Completed OT CONSULTATION Routine THERAPIES 01/05/20 10:00 Completed PT CONSULT Routine THERAPIES 01/04/20 13:16 Completed PT CONSULT Routine THERAPIES 01/05/20 09:00 Completed Medications Generic Name Dose Route Start Last Admin Trade Name Freq PRN Reason Stop Dose Admin Acetaminophen 650 mg 01/04/20 19:59 Acetaminophen 325 Mg Tablet PO Q4H PRN Pain Amlodipine Besylate 5 mg 01/05/20 09:00 01/05/20 09:55 Amlodipine Besylate 5 Mg Tablet PO 5 mg DAILY SILVERIO Administration Atorvastatin Calcium 10 mg 01/05/20 09:00 01/05/20 09:55 Atorvastatin Calcium 10 Mg Tablet PO 10 mg DAILY SILVERIO Administration Enoxaparin Sodium 120 mg 01/05/20 09:00 01/05/20 10:10 Enoxaparin Sodium 150 Mg/Ml Syr SUBCUT 120 mg Q12HR SILVERIO Administration Hydrochlorothiazide 12.5 mg 01/05/20 09:00 01/05/20 09:55 Hydrochlorothiazide 25 Mg Tablet PO 12.5 mg DAILY SILVERIO Administration Sodium Chloride 1 syr 01/04/20 17:57 01/04/20 18:30 0.9% Sodium Chloride 10 Ml Disp.Syrin IVF 1 syr PRN PRN Administration To flush IV Sodium Chloride 1 syr 01/05/20 21:00 0.9% Sodium Chloride 10 Ml Disp.Syrin IVF Q8HR SILVERIO Discontinued Medications Generic Name Dose Route Start Last Admin Trade Name Guanacoq PRN Reason Stop Dose Admin Albuterol Sulfate 2 puff 01/04/20 17:49 01/04/20 19:01 Albuterol Sulfate (Ventolin Hfa) 18 Gm 1 Puff With Spacer IH 01/04/20 17:50 2 puff ONCE STA Administration Doxycycline Hyclate 100 mg 01/05/20 09:00 01/05/20 09:45 Doxycycline Hyclate 100 Mg Capsule PO 01/08/20 08:59 Not Given BID SILVERIO Enoxaparin Sodium 100 mg 01/04/20 19:35 01/04/20 20:00 Enoxaparin Sodium 100 Mg/Ml Syr SUBCUT 01/04/20 19:36 100 mg ONCE STA Administration Furosemide 20 mg 01/04/20 19:28 01/04/20 19:58 Furosemide Inj 20 Mg/2 Ml Vial IVP 01/04/20 19:29 20 mg ONCE STA Administration Methylprednisolone Sodium Succinate 125 mg 01/04/20 18:03 01/04/20 18:29 Methylprednisolone Sod Succ/Pf 125 Mg/2 Ml Vial IVP 01/04/20 18:04 125 mg ONCE STA Administration Assessment (1) Respiratory failure: Status: Acute Code(s): J96.90 - Respiratory failure, unspecified, unspecified whether with hypoxia or hypercapnia SNOMED Code(s): 540142581 Qualifiers: Chronicity: acute Respiratory failure complication: hypoxia and hypercapnia Qualified Code(s): J96.01 - Acute respiratory failure with hypoxia; J96.02 - Acute respiratory failure with hypercapnia Plan Plan: lovenox, monitor labs---see orders
[2020-01-06 04:39] LABS: BASOPHILS % (AUTO) 0.2 % (0.0-3.0); EOSINOPHILS % (AUTO) 0.2 % (0.0-7.0); HEMOGLOBIN 15.8 g/dl (14.0-18.0); IMMATURE GRANULOCYTE % (AUTO) 0.4 % (0.0-5.0); LYMPHOCYTES # (AUTO) 0.9 K/uL (0.60-3.4); MEAN CORPUSCULAR HEMOGLOBIN 29.9 pg (27.0-31.0); MEAN CORPUSCULAR HGB CONC 29.3 (31.8-35.4); MEAN CORPUSCULAR VOLUME 102.1 fl (80.0-94.0); MONOCYTES # (AUTO) 0.7 K/uL (0.4-2.0); MONOCYTES % (AUTO) 8.4 (0-10); NEUTROPHILS # (AUTO) 6.7 K/ul (2.0-6.9); NEUTROPHILS % (AUTO) 79.8 % (42.2-75.2); PLATELET COUNT 151 10^3/uL (140-440); RDW COEFFICIENT OF VARIATION 14.1 % (11.6-14.8); RED BLOOD COUNT 5.29 10^6/ul (4.70-6.10); WHITE BLOOD COUNT 8.42 K/ul (4.2-10.2)
[2020-01-06 04:51] LABS: ALANINE AMINOTRANSFERASE 19.5 U/L (0-50); ALBUMIN 3.7 g/dL (3.5-5.0); ALKALINE PHOSPHATASE 64.1 U/L (56-119); ASPARTATE AMINO TRANSFERASE 32.8 U/L (17-59); BILIRUBIN,TOTAL 0.74 mg/dL (0.2-1.3); BLOOD UREA NITROGEN 52.5 mg/dL (9-20); CALCIUM 8.15 mg/dL (8.4-10.2); CHLORIDE 95.6 mmol/L (98-107); CREATININE 1.07 mg/dL (0.60-1.10); GLUCOSE 127.8 mg/dL (74-106); POTASSIUM 4.02 mmol/L (3.5-5.1); TOTAL PROTEIN 7.59 g/dL (6.3-8.2)
[2020-01-06 04:57] LABS: CARBON DIOXIDE 36.6 mmol/L (22-30.0)
--- NOTE | 2020-01-06 06:28 | PCM.PROG ---
Date Seen by Provider: 01/06/20 Time Seen by Provider: 06:25 Subjective: Mr Flannery says he slept well---denies any cp or worsening dyspnea--no nursing staff concerns voiced Objective: Vitals: T=97.7 F, P=71, R=21, LH=350/72, SPO2=92 HEENT: [perrla] Neck: [supple] Lungs: [clear] CVS: [rrr] Abdomen: [soft nt] Extremities: [no deformity] Neurological: [no focal deficits] Skin: [no rashes] Lab/Tests/Diagnostic Imaging: [labs pending this] (1) Respiratory failure: Status: Acute Code(s): J96.90 - Respiratory failure, unspecified, unspecified whether with hypoxia or hypercapnia SNOMED Code(s): 579870725 (2) Deep venous thrombosis: Status: Acute Code(s): I82.409 - Acute embolism and thrombosis of unspecified deep veins of unspecified lower extremity SNOMED Code(s): 528464387 (3) Pulmonary emboli: Status: Acute Code(s): I26.99 - Other pulmonary embolism without acute cor pulmonale SNOMED Code(s): 52666937 Plan: continue lovenox---transition to eliquis today
[2020-01-06] MEDS: HYDROCHLOROTHIAZIDE PO SCH (08:31)
[2020-01-06] MEDS: LIPITOR PO SCH (08:31)
[2020-01-06] MEDS: ELIQUIS PO SCH ×2 (08:31→20:05)
[2020-01-06] MEDS: NORVASC PO SCH (08:31)
[2020-01-06] MEDS: TYLENOL PO PRN (18:27)
--- NOTE | 2020-01-07 05:41 | PCM.PROG ---
Date Seen by Provider: 01/07/20 Time Seen by Provider: 05:39 Subjective: resting quietly without cp or dyspnea--no nursing staff concerns Objective: Vitals: T=98.3 F, P=75, R=18, PA=766/65, SPO2=92 HEENT: perrla[] Neck: [supple] Lungs: [clear] CVS: [rrr] Abdomen: []soft, nt Extremities: [no deformity] Neurological: [no focal deficits] Skin: [no rashes] Lab/Tests/Diagnostic Imaging: [] cbc and cmp pending (1) Respiratory failure: Status: Acute Code(s): J96.90 - Respiratory failure, unspecified, unspecified whether with hypoxia or hypercapnia SNOMED Code(s): 841003346 (2) Deep venous thrombosis: Status: Acute Code(s): I82.409 - Acute embolism and thrombosis of unspecified deep veins of unspecified lower extremity SNOMED Code(s): 426343283 (3) Pulmonary emboli: Status: Acute Code(s): I26.99 - Other pulmonary embolism without acute cor pulmonale SNOMED Code(s): 68827916 Plan: transition from lovenox to eliquis accomplished----?home tomorrrow if stable
[2020-01-07 05:46] LABS: HEMATOCRIT 53.6 % (42.0-52.0); HEMOGLOBIN 15.7 g/dl (14.0-18.0); MEAN CORPUSCULAR HEMOGLOBIN 29.6 pg (27.0-31.0); MEAN CORPUSCULAR HGB CONC 29.3 (31.8-35.4); MEAN CORPUSCULAR VOLUME 100.9 fl (80.0-94.0); PLATELET COUNT 141 10^3/uL (140-440); RDW COEFFICIENT OF VARIATION 14.1 % (11.6-14.8); RED BLOOD COUNT 5.31 10^6/ul (4.70-6.10); WHITE BLOOD COUNT 6.68 K/ul (4.2-10.2)
[2020-01-07 05:56] LABS: ANISOCYTOSIS NOT PRESENT (NOT PRESENT)
[2020-01-07 05:58] LABS: ALANINE AMINOTRANSFERASE 18.7 U/L (0-50); ALBUMIN 3.6 g/dL (3.5-5.0); ALKALINE PHOSPHATASE 62.2 U/L (56-119); ASPARTATE AMINO TRANSFERASE 31.7 U/L (17-59); BILIRUBIN,TOTAL 0.77 mg/dL (0.2-1.3); CALCIUM 7.98 mg/dL (8.4-10.2); CHLORIDE 92.9 mmol/L (98-107); CREATININE 0.9 mg/dL (0.60-1.10); GLUCOSE 132.1 mg/dL (74-106); POTASSIUM 4.19 mmol/L (3.5-5.1); SODIUM 138.2 mmol/L (134.5-145); TOTAL PROTEIN 7.47 g/dL (6.3-8.2)
[2020-01-07 06:04] LABS: CARBON DIOXIDE 38.9 mmol/L (22-30.0)
[2020-01-07] MEDS: LIPITOR PO SCH (08:30)
[2020-01-07] MEDS: NORVASC PO SCH (08:31)
[2020-01-07] MEDS: HYDROCHLOROTHIAZIDE PO SCH (08:31)
[2020-01-07] MEDS: ELIQUIS PO SCH ×2 (08:31→20:05)
[2020-01-07] MEDS: TYLENOL PO PRN ×2 (12:14→16:31)
[2020-01-08 07:31] LABS: ABG BASE EXCESS 22.8 (-2.0-2.0); ABG HCO3 49.2 (22.0-26.0); ABG OXYGEN SATURATION 95.9 % (95-100); ABG TCO2 52.3 (22.0-28.0)
[2020-01-08] MEDS: NORVASC PO SCH (09:28)
[2020-01-08] MEDS: HYDROCHLOROTHIAZIDE PO SCH (09:28)
[2020-01-08] MEDS: LIPITOR PO SCH (09:28)
[2020-01-08] MEDS: ELIQUIS PO SCH ×2 (09:28→20:16)
[2020-01-08] MEDS: TYLENOL PO PRN (10:13)
[2020-01-08 19:06] LABS: BILIRUBIN,URINE Negative (NEGATIVE); CLARITY,URINE Cloudy (CLEAR); COLOR,URINE Yellow (YELLOW); GLUCOSE, URINE (UA) Negative (NEGATIVE); KETONES,URINE Negative (NEGATIVE); LEUKOCYTE ESTERASE ,URINE 1+ (NEGATIVE); NITRITE,URINE Positive (NEGATIVE); PH,URINE 7.5 (5-9); PROTEIN,URINE 2+ (NEGATIVE); URINE, BLOOD 2+ (NEGATIVE)
[2020-01-08 19:13] LABS: BACTERIA,URINE 3+ (NOT PRESENT); SQUAMOUS EPITHELIAL CELL,UR 0-2 (0-5); TRIPLE PHOSPHATE CRYSTAL,UR TRACE (NOT PRESENT)
[2020-01-09 05:00] LABS: HEMATOCRIT 53.3 % (42.0-52.0); HEMOGLOBIN 15.9 g/dl (14.0-18.0); MEAN CORPUSCULAR HEMOGLOBIN 29.7 pg (27.0-31.0); MEAN CORPUSCULAR HGB CONC 29.8 (31.8-35.4); MEAN CORPUSCULAR VOLUME 99.6 fl (80.0-94.0); PLATELET COUNT 129 10^3/uL (140-440); RDW COEFFICIENT OF VARIATION 13.8 % (11.6-14.8); RED BLOOD COUNT 5.35 10^6/ul (4.70-6.10); WHITE BLOOD COUNT 4.63 K/ul (4.2-10.2)
[2020-01-09 05:06] LABS: ANISOCYTOSIS NOT PRESENT (NOT PRESENT)
[2020-01-09 05:14] LABS: ALANINE AMINOTRANSFERASE 21.7 U/L (0-50); ALBUMIN 3.64 g/dL (3.5-5.0); ALKALINE PHOSPHATASE 59.7 U/L (56-119); ASPARTATE AMINO TRANSFERASE 39.7 U/L (17-59); BILIRUBIN,TOTAL 0.81 mg/dL (0.2-1.3); BLOOD UREA NITROGEN 25.2 mg/dL (9-20); CALCIUM 8.51 mg/dL (8.4-10.2); CHLORIDE 88.8 mmol/L (98-107); CREATININE 0.86 mg/dL (0.60-1.10); GLUCOSE 123.3 mg/dL (74-106); POTASSIUM 4.25 mmol/L (3.5-5.1); SODIUM 136.2 mmol/L (134.5-145); TOTAL PROTEIN 7.59 g/dL (6.3-8.2)
[2020-01-09 05:22] LABS: CARBON DIOXIDE 40.8 mmol/L (22-30.0)
[2020-01-09 06:06] VITALS: TEMP 98.5
[2020-01-09] MEDS: NORVASC PO SCH (09:18)
[2020-01-09] MEDS: LIPITOR PO SCH (09:18)
[2020-01-09] MEDS: HYDROCHLOROTHIAZIDE PO SCH (09:19)
[2020-01-09] MEDS: ELIQUIS PO SCH (09:19)
[2020-01-09 14:26] VITALS: BP 151/64
--- NOTE | 2020-01-09 16:43 | PCM.PROG ---
Date Seen by Provider: 01/08/20 Time Seen by Provider: 16:41 Subjective: doing well--met with his family and they desire placement at [facility] Objective: Vitals: T=98.5 F, P=90, R=20, YP=568/64, SPO2=88 HEENT: [perrla] Neck: [supple] Lungs: [scattered rhonchi] CVS: [rrr] Abdomen: [soft nt] Extremities: [no deformity] Neurological: no change[] Skin: [] Lab/Tests/Diagnostic Imaging: [labds reviews] (1) Respiratory failure: Status: Acute Code(s): J96.90 - Respiratory failure, unspecified, unspecified whether with hypoxia or hypercapnia SNOMED Code(s): 232724971 (2) Deep venous thrombosis: Status: Acute Code(s): I82.409 - Acute embolism and thrombosis of unspecified deep veins of unspecified lower extremity SNOMED Code(s): 602256598 (3) Pulmonary emboli: Status: Acute Code(s): I26.99 - Other pulmonary embolism without acute cor pulmonale SNOMED Code(s): 66785864 Plan: will check ua--for placement tomorrow
--- NOTE | 2020-01-09 16:44 | PCM.PROG ---
met with the family --ready for discharge to the pr--will need oxygen 5 liters during the day and trelogy at night---has uti--will discharge with augmentin
--- NOTE | 2020-01-09 16:53 | PCM.DC ---
Final Diagnosis: acute with chronic resp failure with hypercapnea and hypoxia, pulmonary emboli, dvt, uti (1) Respiratory failure: Status: Acute Code(s): J96.90 - Respiratory failure, unspecified, unspecified whether with hypoxia or hypercapnia SNOMED Code(s): 420950751 Qualifiers: Chronicity: acute Respiratory failure complication: hypoxia and hypercapnia Qualified Code(s): J96.01 - Acute respiratory failure with hypoxia; J96.02 - Acute respiratory failure with hypercapnia (2) Deep venous thrombosis: Status: Acute Code(s): I82.409 - Acute embolism and thrombosis of unspecified deep veins of unspecified lower extremity SNOMED Code(s): 787545417 Qualifiers: DVT location: lower extremity Affected thrombotic vein of extremity: unspecified vein of extremity Chronicity: acute Laterality: unspecified laterality Qualified Code(s): I82.409 - Acute embolism and thrombosis of unspecified deep veins of unspecified lower extremity (3) Pulmonary emboli: Status: Acute Code(s): I26.99 - Other pulmonary embolism without acute cor pulmonale SNOMED Code(s): 30735573 Qualifiers: Pulmonary embolism type: unspecified Chronicity: acute Acute cor pulmonale presence: unspecified Qualified Code(s): I26.99 - Other pulmonary embolism without acute cor pulmonale (4) UTI (urinary tract infection): Status: Acute Code(s): N39.0 - Urinary tract infection, site not specified SNOMED Code(s): 80398018 Qualifiers: Urinary tract infection type: acute cystitis Hematuria presence: without hematuria Qualified Code(s): N30.00 - Acute cystitis without hematuria Reason for Hospitalization: this patient presented to the ed wih hypoxia and hypercapnea and was found to have bilateral pulmonary emboli. Subsequent found to have lower extremity dvt. Familhy declines transfer or ekos consideration.,the patient was started on lovenox and transitioned to eliquis without complication. His urine culture was pos for gram neg rods and now discharged to local nursing facility for further care. Prognosis at Discharge: guarded Condition at Discharge: stable Medications at Discharge: Ambulatory Orders Medication Instructions Recorded atorvastatin [Lipitor] 10 mg PO DAILY 12/05/13 hydrochlorothiazide 12.5 mg PO DAILY 12/05/13 amlodipine 5 mg PO DAILY #30 tablet 12/25/13 doxycycline monohydrate 100 mg PO BID 01/04/20 eliquis 10mg bid for a total of 7 days then 5mg bid thereafter, oxygen 5liters during the day and Trelogy machine at night Lab/Diagnostics: noted pos urine culture Education Provided to Patient and Family: on dvt and pe Follow-ups: [facility] andrade [facility] Discharge Disposition: Skilled Nursing Care Facility Hospital Course: as above with tolerance of anticoagulation without bleeding . his oxygenation was treated with low flow oxygen and vaoptherm and cpap and will be transitioned to the trelogy device. again was found to have uti and discharaged with augmentin. Plan: [facility] per dr andrade
[2020-01-09] MEDS ORDERED: ELIQUIS PO STA (17:19)
[2020-01-09] MEDS ORDERED: DOXYCYCLINE HYCLATE PO ONE (17:20)
== END 2020-01-09 16:55 | DRG 204 ==
LOC: ED 17:29 → MEDSURG B 20:28
PROVIDERS: ADMIT Family Medicine; ATTEND Family Medicine
DX: N39.0 Urinary tract infection, site not specified; I82.409 Acute embolism and thrombosis of unspecified deep veins of unspecified lower extremity; R06.02 Shortness of breath; R53.1 Weakness; I26.99 Other pulmonary embolism without acute cor pulmonale; J96.90 Respiratory failure, unspecified, unspecified whether with hypoxia or hypercapnia

== ENCOUNTER 2020-06-27 13:57 | Inpatient (IN) ==
--- NOTE | 2020-06-27 14:33 | ED.PDOC ---
General ED Provider: Dr. FRIDA GARCIA Chief Complaint: Altered Mental Status Stated Complaint: increasing confusion , Reduced Oxygen saturation Difficulty mental clarity. Hx of CO2 retention in past . Daughter (the RN is worried about his decompensation. ) Has become progressively weaker over past week. Paramedics found O2 sat in 30's/ had cyanosis. Applied O2 and he slowly improved Patient found in floor by family this afternoon around 1515 hrs /1600 hrs and helped up Ambulance summoned for emergency assistance. Mode of Arrival: Ambulance Information Source: Patient Exam Limitations: Clinical condition, Dementia and Altered mental status Primary Care Provider: ANGY SMALLWOOD Seen Within Last 72 Hours for Same Complaint By: ED Nursing and Triage Documentation Reviewed and Agree: Yes Does patient meet sepsis criteria?: No System Inflammatory Response Syndrome: Not Applicable Sepsis Protocol: For patient's 13 years and over: Temp is 96.8 and below OR 101 and greater Pulse >90 BPM Resp >20/minute Acutely Altered Mental Status Are patient's symptoms suggestive of a new infection, such as: -Pneumonia -Skin, Soft Tissue -Endocarditis -UTI -Bone, Joint Infection -Implantable Device -Acute Abdominal Infection -Wound Infection -Meningitis -Blood Stream Catheter Infection -Unknown Respiratory Complaint Exam Shortness of Air Complaint/Exam Onset/Duration: Chronic. Symptoms Are: Resolved (On Oxygen therapy) Timing: Intermittent Current Severity: Moderate Character: Reports Dyspnea at rest Aggravating: Reports Movement and Deep breaths Alleviating: Reports Oxygen and Upright position Associated Signs and Symptoms: Reports Cough Related History: Reports Similar episode History of Healthcare-Acquired Pneumonia: No Pulmonary Embolism Risk Factors: Reports Previous PE Cardiac Risk Factors: Reports CAD and CHF Pseudomonas Risk Factors: Reports Bronchiectasis Differential Diagnoses: COPD Exacerbation Review of Systems Review Of Systems Constitutional: Reports No symptoms Eyes: Reports No symptoms Ears, Nose, Mouth, Throat: Reports No symptoms Respiratory: Reports Short of air Cardiac: Reports No symptoms GI: Reports No symptoms : Reports No symptoms Musculoskeletal: Reports No symptoms Neurological: Reports No symptoms Endocrine: Reports No symptoms Hematologic/Lymphatic: Reports No symptoms All Other Systems: Reviewed and Negative [facility] Medical History (Updated 06/28/20 @ 14:05 by YESENIA WHITEHEAD) Ataxia Cardiomegaly CHF (congestive heart failure) Chronic respiratory failure COPD (chronic obstructive pulmonary disease) DVT (deep venous thrombosis) Dyslipidemia History of fall Hypertension Morbid obesity Oxygen dependent Pulmonary emboli Traumatic brain injury Social History Smoking and tobacco status: Never smoker Alcohol intake: never History of recent travel: No Physical Exam Physical Exam Appearance: Reports Ill-appearing and Obese Ill-appearing: Mild Pain Distress: Mild Eyes: Reports SHERIN, EOMI and Conjunctiva clear ENT: Reports Ears normal, Nose normal and Oropharynx normal Neck: Supple Respiratory: Reports Airway patent, Breath sounds clear, Breath sounds equal and Respirations nonlabored Cardiovascular: Reports RRR, Pulses normal, No rub and No murmur GI/: Reports Soft, Nontender, No masses, Bowel sounds normal and No Organomegaly Musculoskeletal: Reports Normal strength, ROM intact, No edema and No calf tenderness Skin: Reports Warm, Dry and Normal color Neurological: Reports Sensation intact, Motor intact, Reflexes intact, Cranial nerves intact, Alert and Oriented Psychiatric: Reports Affect appropriate and Mood appropriate Interpretation Radiology Interpretation Exam Interpreted: Portable CXR and Other (No acute cardiopulmonary process is identified \) Xray Comments: minimal bibasilar ground-glass that may represent atelectasis. EKG Interpretation Time of EKG #1: 14:29 Rate: Normal Rhythm: Sinus Ectopy: None [place]: Left Interpretation: non specific T wave Physician Notification Case Discussed Physician Notified: Dr Smallwood/ Came in to see patient and speak with family/will admit for obsv Time of Notification: 16:48 Critical Care Note Critical Care Note Total Critical Care Time (mins): 60 Course Course Hematology/Chemistry: 07/01/20 04:50 07/01/20 04:50 Orders, Labs, Meds: Lab Review 06/27/20 06/27/20 06/27/20 14:20 14:33 14:35 WBC 5.68 RBC 4.97 Hgb 15.8 Hct 52.2 H MCV 105.0 H MCH 31.8 H MCHC 30.3 L RDW Coeff of Salud 13.8 Plt Count 175 Immature Gran % (Auto) 0.5 Neut % (Auto) 74.8 Lymph % (Auto) 12.9 [place] % (Auto) 10.2 H Eos % (Auto) 1.4 Baso % (Auto) 0.2 Neut # (Auto) 4.3 Lymph # (Auto) 0.7 [place] # (Auto) 0.6 Eos # (Auto) 0.1 Baso # (Auto) 0.0 Immature Gran # (Auto) 0.0 Puncture Site Rbrach Base Excess 20.5 H O2 Saturation 89.5 L ABG pH 7.31 L ABG pCO2 93.0 H ABG pO2 63.0 L ABG HCO3 46.8 H ABG Total CO2 49.7 H Forrest Test Hemoglobin 1.2 Oxyhemoglobin 89.9 L Carboxyhemoglobin 3.1 H Total Hemoglobin 16.2 O2 Delivery Device Cannula Oxygen Liter Flow 2.00 FiO2 % Sodium Potassium Chloride Carbon Dioxide Anion Gap BUN Creatinine Estimated GFR (MDRD) BUN/Creatinine Ratio Glucose Calcium Magnesium Total Bilirubin AST ALT Alkaline Phosphatase Troponin I NT-Pro-B Natriuret Pep Total Protein Albumin Globulin Albumin/Globulin Ratio Urine Color Urine Clarity Urine pH Ur Specific [place] Urine Protein Urine Glucose (UA) Urine Ketones Urine Blood Urine Nitrite Urine Bilirubin Urine Urobilinogen Ur Leukocyte Esterase Urine Microscopic RBC Ur Squamous Epith Cells Amorphous Sediment Adenovirus (PCR) Not detected B. pertussis DNA (PCR) Not detected B.parapertussis DNA PCR Not detected C. pneumoniae DNA (PCR) Not detected Coronavirus OC43 (PCR) Not detected Coronavirus HKU1 (PCR) Not detected Coronavirus 229E (PCR) Not detected Coronavirus NL63 (PCR) Not detected Human Metapneumovir PCR Not detected Influenza Type A (PCR) Not detected Influenza B (RT-PCR) Not detected M. pneumoniae (PCR) Not detected Parainfluenza 1 (PCR) Not detected Parainfluenza 2 (PCR) Not detected Parainfluenza 3 (PCR) Not detected Parainfluenza 4 (PCR) Not detected RSV (PCR) Not detected Entero/Rhino (PCR) Not detected SARS-CoV-2 (PCR) Not detected 06/27/20 06/27/20 06/27/20 14:35 15:30 19:45 WBC RBC Hgb Hct MCV MCH MCHC RDW Coeff of Salud Plt Count Immature Gran % (Auto) Neut % (Auto) Lymph % (Auto) [place] % (Auto) Eos % (Auto) Baso % (Auto) Neut # (Auto) Lymph # (Auto) [place] # (Auto) Eos # (Auto) Baso # (Auto) Immature Gran # (Auto) Puncture Site Lb Base Excess 21.8 H O2 Saturation 88.9 L ABG pH 7.27 L* ABG pCO2 106.0 H ABG pO2 64.0 L ABG HCO3 48.7 H ABG Total CO2 52 H Forrest Test + Hemoglobin 0.9 Oxyhemoglobin 87.0 L Carboxyhemoglobin 3.5 H Total Hemoglobin 15.6 O2 Delivery Device Oxygen Liter Flow FiO2 % 50.0 Sodium 145.3 H Potassium 4.34 Chloride 98.7 Carbon Dioxide 42.0 H* Anion Gap 8.94 BUN 35.7 H Creatinine 1.00 Estimated GFR (MDRD) 73.00 BUN/Creatinine Ratio 35.70 Glucose 155.1 H Calcium 8.47 Magnesium 2.45 H Total Bilirubin 0.82 AST 31.3 ALT 15.7 Alkaline Phosphatase 68.0 Troponin I < 0.012 NT-Pro-B Natriuret Pep 510.000 H Total Protein 7.72 Albumin 3.94 Globulin 3.78 Albumin/Globulin Ratio 1.04 Urine Color Yellow Urine Clarity Clear Urine pH 5.5 Ur Specific [place] >=1.030 Urine Protein 1+ H Urine Glucose (UA) Negative Urine Ketones Negative Urine Blood Trace-intact H Urine Nitrite Negative Urine Bilirubin 1+ H Urine Urobilinogen 0.2 Ur Leukocyte Esterase Negative Urine Microscopic RBC 2-5 Ur Squamous Epith Cells 2-5 Amorphous Sediment 1+ Adenovirus (PCR) B. pertussis DNA (PCR) B.parapertussis DNA PCR C. pneumoniae DNA (PCR) Coronavirus OC43 (PCR) Coronavirus HKU1 (PCR) Coronavirus 229E (PCR) Coronavirus NL63 (PCR) Human Metapneumovir PCR Influenza Type A (PCR) Influenza B (RT-PCR) M. pneumoniae (PCR) Parainfluenza 1 (PCR) Parainfluenza 2 (PCR) Parainfluenza 3 (PCR) Parainfluenza 4 (PCR) RSV (PCR) Entero/Rhino (PCR) SARS-CoV-2 (PCR) Orders Category Date Time Status ADMIT PATIENT INPATIENT .TO [facility] (MONITORED BED) ADMISSION 06/27/20 18:31 Completed ABG DRAW REQUEST DAILY@0600 CARDIO 06/28/20 06:00 Completed ABG DRAW REQUEST DAILY@0600 CARDIO 06/29/20 06:00 Completed ABG DRAW REQUEST Stat CARDIO 06/27/20 14:16 Completed ABG DRAW REQUEST Stat CARDIO 06/27/20 18:45 Completed EKG-(ED ONLY) Stat CARDIO 06/27/20 14:16 Completed OXYGEN Routine CARDIO 06/27/20 14:16 Completed OXYGEN Routine CARDIO 06/27/20 18:38 Completed VAPOTHERM Routine CARDIO 06/27/20 17:45 Completed ACTIVITY .Complete BR CARE 06/27/20 18:34 Completed CATHETER INSERTION AND CARE Q8HR CARE 06/27/20 18:33 Completed INTAKE & OUTPUT Q8HR CARE 06/27/20 18:33 Completed REMINDER: Ask MD to d/c ward DAILY CARE 06/27/20 18:34 Completed TELEMETRY MONITORING TELE CARE 06/27/20 18:31 Completed VITAL SIGNS Q8HR CARE 06/27/20 18:33 Completed REGULAR DIET DIETARY 06/27/20 Dinner Completed IV [ED IV/MEDIPORT/POWERPORT] .ONCE EMERGENCY 06/27/20 14:16 Completed IV [ED IV/MEDIPORT/POWERPORT] .ONCE EMERGENCY 06/27/20 18:33 Completed ABG COOX DAILY@0600 LAB 06/28/20 05:15 Completed ABG COOX DAILY@0600 LAB 06/29/20 04:50 Completed ABG COOX Stat LAB 06/27/20 14:33 Completed ABG COOX Stat LAB 06/27/20 19:45 Completed CBC W/ AUTO DIFF DAILY@0600 LAB 06/28/20 04:40 Completed CBC W/ AUTO DIFF Stat LAB 06/27/20 14:35 Completed CMP [COMPREHENSIVE METABOLIC PANEL] Stat LAB 06/27/20 14:35 Completed COMPREHENSIVE METABOLIC PANEL DAILY@0600 LAB 06/28/20 04:40 Completed COMPREHENSIVE METABOLIC PANEL DAILY@0600 LAB 06/29/20 05:00 Completed MAGNESIUM Stat LAB 06/27/20 14:35 Completed NT-PROBNP Stat LAB 06/27/20 14:35 Completed RESPIRATORY PANEL 2.1 (PCR) Stat LAB 06/27/20 14:20 Completed TROPONIN I Stat LAB 06/27/20 14:35 Completed UA [URINALYSIS C & S IF INDICATED] Stat LAB 06/27/20 15:30 Completed 0.9 % Sodium Chloride [Saline Flush] MEDS 06/27/20 14:16 Discontinued 1 syr IVF PRN PRN Acetaminophen [Tylenol] MEDS 06/27/20 18:38 Discontinued 650 mg PO Q4H PRN Amlodipine Besylate [Norvasc] MEDS 06/28/20 09:00 Discontinued 5 mg PO DAILY Apixaban [Eliquis] MEDS 06/27/20 19:00 Discontinued 5 mg PO Q12H Atorvastatin Calcium [Lipitor] MEDS 06/28/20 09:00 Discontinued 10 mg PO DAILY Hydrochlorothiazide MEDS 06/28/20 09:00 Discontinued 12.5 mg PO DAILY Sodium Chloride 0.9% [Sodium Chloride] 1,000 ml MEDS 06/27/20 19:00 Discontinued IV 75 mls/hr RESUSCITATION STATUS Routine OTHERS 06/27/20 18:33 Completed CHEST, 1V AP ONLY Stat RADS 06/27/20 14:16 Completed KNEE, RIGHT 1 OR 2 VIEWS Stat RADS 06/27/20 19:22 Completed Medications Discontinued Medications Generic Name Dose Route Start Last Admin Trade Name Freq PRN Reason Stop Dose Admin Acetaminophen 650 mg 06/27/20 18:38 Acetaminophen 325 Mg Tablet PO Q4H PRN Pain Albuterol/Ipratropium 3 ml 06/28/20 09:35 06/28/20 09:57 Ipratropium/Albuterol Vial.Neb NEB Not Given RTQ6H SILVERIO Albuterol/Ipratropium 3 ml 06/28/20 10:00 Ipratropium/Albuterol Vial.Neb NEB QID SILVERIO Albuterol/Ipratropium 3 ml 06/28/20 10:00 07/01/20 14:15 Ipratropium/Albuterol Vial.Neb NEB 3 ml RTQID SILVERIO Administration Amlodipine Besylate 5 mg 06/28/20 09:00 07/01/20 08:45 Amlodipine Besylate 5 Mg Tablet PO 5 mg DAILY SILVERIO Administration Apixaban 5 mg 06/27/20 19:00 06/27/20 21:35 Apixaban 5 Mg Tab PO 5 mg Q12H SILVERIO Administration Apixaban 5 mg 06/28/20 09:00 07/01/20 08:46 Apixaban 5 Mg Tab PO 5 mg Q12HR SILVERIO Administration Atorvastatin Calcium 10 mg 06/28/20 09:00 07/01/20 08:46 Atorvastatin Calcium 10 Mg Tablet PO 10 mg DAILY SILVERIO Administration Furosemide 20 mg 06/28/20 09:36 06/28/20 09:55 Furosemide Inj 20 Mg/2 Ml Vial IVP 06/28/20 09:37 20 mg ONCE ONE Administration Furosemide 20 mg 06/30/20 17:30 07/01/20 05:44 Furosemide 20 Mg Tablet PO 20 mg QDAC SILVERIO Administration Hydrochlorothiazide 12.5 mg 06/28/20 09:00 07/01/20 08:45 Hydrochlorothiazide 25 Mg Tablet PO 12.5 mg DAILY SILVERIO Administration Sodium Chloride 1,000 mls @ 75 mls/hr 06/27/20 19:00 06/30/20 17:00 Sodium Chloride IV Not Given .[id number] SILVERIO Lorazepam 0.5 mg 06/28/20 22:01 07/01/20 02:08 Lorazepam 0.5 Mg Tablet PO 0.5 mg Q2H PRN Administration Anxiety Methylprednisolone Sodium Succinate 80 mg 06/28/20 10:00 06/30/20 09:10 Methylprednisolone Sod Succ/Pf 125 Mg/2 Ml Vial IVP 80 mg Q8H SILVERIO Administration Pantoprazole Sodium 40 mg 06/29/20 10:00 07/01/20 05:44 Pantoprazole Sodium 40 Mg Tablet. PO 40 mg QDAC SILVREIO Administration Prednisone 20 mg 06/30/20 17:30 07/01/20 08:46 Prednisone 20 Mg Tablet PO 20 mg DAILYWM SILVERIO Administration Sodium Chloride 1 syr 06/27/20 14:16 06/28/20 18:30 0.9% Sodium Chloride 10 Ml Disp.Syrin IVF 1 syr PRN PRN Administration To flush IV Vital Signs: Temp Pulse Resp BP Pulse Ox 06/27/20 17:45 90 L 06/27/20 13:57 97.7 F 71 20 131/64 94 L Discharge Plan Discharge Patient Disposition: PLACED OBSERVATION Discharge Problem: Chronic respiratory failure, Carbon dioxide retention, Acute urinary retention ED Provider: FRIDA GARCIA Condition: Fair Physician Progress Note: Resp placed pt on Vapotherm for CO2 retention> Dr Smallwood indicated willingness for observation admission to determine benefit then poss transfer to [place] ; Explained to Niels
[2020-06-27 14:37] LABS: ABG PH 7.31 (7.35-7.45)
[2020-06-27 14:39] LABS: BASOPHILS % (AUTO) 0.2 % (0.0-3.0); EOSINOPHILS # (AUTO) 0.1 K/ul (0.0-0.7); EOSINOPHILS % (AUTO) 1.4 % (0.0-7.0); HEMATOCRIT 52.2 % (42.0-52.0); HEMOGLOBIN 15.8 g/dl (14.0-18.0); IMMATURE GRANULOCYTE % (AUTO) 0.5 % (0.0-5.0); LYMPHOCYTES # (AUTO) 0.7 K/uL (0.60-3.4); LYMPHOCYTES % (AUTO) 12.9 (10.0-50.0); MEAN CORPUSCULAR HEMOGLOBIN 31.8 pg (27.0-31.0); MEAN CORPUSCULAR HGB CONC 30.3 (31.8-35.4); MONOCYTES # (AUTO) 0.6 K/uL (0.4-2.0); MONOCYTES % (AUTO) 10.2 (0-10); NEUTROPHILS # (AUTO) 4.3 K/ul (2.0-6.9); NEUTROPHILS % (AUTO) 74.8 % (42.2-75.2); PLATELET COUNT 175 10^3/uL (140-440); RDW COEFFICIENT OF VARIATION 13.8 % (11.6-14.8); RED BLOOD COUNT 4.97 10^6/ul (4.70-6.10); WHITE BLOOD COUNT 5.68 K/ul (4.2-10.2)
[2020-06-27 14:51] LABS: ALANINE AMINOTRANSFERASE 15.7 U/L (0-50); ALBUMIN 3.94 g/dL (3.5-5.0); ASPARTATE AMINO TRANSFERASE 31.3 U/L (17-59); BILIRUBIN,TOTAL 0.82 mg/dL (0.2-1.3); BLOOD UREA NITROGEN 35.7 mg/dL (9-20); CALCIUM 8.47 mg/dL (8.4-10.2); CHLORIDE 98.7 mmol/L (98-107); GLUCOSE 155.1 mg/dL (74-106); MAGNESIUM 2.45 mg/dL (1.6-2.3); POTASSIUM 4.34 mmol/L (3.5-5.1); SODIUM 145.3 mmol/L (134.5-145); TOTAL PROTEIN 7.72 g/dL (6.3-8.2)
--- NOTE | 2020-06-27 14:58 | DI ---
EXAM: Single frontal view of the chest HISTORY: Shortness of breath. COMPARISON: Chest x-ray 01/04/2020 and multiple priors FINDINGS: Cardiomediastinal silhouette is unremarkable. There is no pneumothorax. There is hazy donnie und-glass in the left lower lobe. The lungs are otherwise clear. There is linear ground-glass in th e right lung base. The osseous structures are unremarkable. IMPRESSION: No acute cardiopulmonary process is identified with minimal bibasilar ground-glass that may represent atelectasis.
[2020-06-27 15:04] LABS: TROPONIN I < 0.012 ng/ml (0.0000-0.120)
[2020-06-27 15:41] LABS: BILIRUBIN,URINE 1+ (NEGATIVE); CLARITY,URINE Clear (CLEAR); COLOR,URINE Yellow (YELLOW); GLUCOSE, URINE (UA) Negative (NEGATIVE); KETONES,URINE Negative (NEGATIVE); LEUKOCYTE ESTERASE ,URINE Negative (NEGATIVE); NITRITE,URINE Negative (NEGATIVE); PH,URINE 5.5 (5-9); PROTEIN,URINE 1+ (NEGATIVE); URINE, BLOOD Trace-intact (NEGATIVE); UROBILINOGEN,URINE 0.2 (0.2)
[2020-06-27 15:48] LABS: AMORPHOUS SEDIMENT,UR 1+ (NOT PRESENT)
[2020-06-27] MEDS ORDERED: TYLENOL PO PRN (18:38)
[2020-06-27] MEDS ORDERED: ELIQUIS PO SCH (19:00)
--- NOTE | 2020-06-27 20:49 | DI ---
EXAM: Two views of the right knee. History: Right knee pain and trauma. Findings: No acute fracture or dislocation. Moderate to severe narrowing of the medial compartment and moderate narrowing of the lateral and patellofemoral compartments. There is marginal sclerosis a nd osteophyte formation. Anterior subcutaneous edema. Impression: 1. No acute osseous abnormality. 2. Tricompartmental osteoarthritis
[2020-06-27] MEDS: SODIUM CHLORIDE 1,000 ML IV SCH (21:36)
[2020-06-27 22:39] VITALS: BMI 48.9
[2020-06-28 05:05] LABS: BASOPHILS % (AUTO) 0.2 % (0.0-3.0); EOSINOPHILS # (AUTO) 0.1 K/ul (0.0-0.7); EOSINOPHILS % (AUTO) 1.8 % (0.0-7.0); HEMATOCRIT 53.5 % (42.0-52.0); HEMOGLOBIN 15.7 g/dl (14.0-18.0); IMMATURE GRANULOCYTE % (AUTO) 0.6 % (0.0-5.0); LYMPHOCYTES # (AUTO) 0.8 K/uL (0.60-3.4); MEAN CORPUSCULAR HEMOGLOBIN 31.2 pg (27.0-31.0); MEAN CORPUSCULAR HGB CONC 29.3 (31.8-35.4); MEAN CORPUSCULAR VOLUME 106.2 fl (80.0-94.0); MONOCYTES # (AUTO) 0.5 K/uL (0.4-2.0); MONOCYTES % (AUTO) 9.6 (0-10); NEUTROPHILS # (AUTO) 3.7 K/ul (2.0-6.9); NEUTROPHILS % (AUTO) 72.8 % (42.2-75.2); PLATELET COUNT 169 10^3/uL (140-440); RDW COEFFICIENT OF VARIATION 13.8 % (11.6-14.8); RED BLOOD COUNT 5.04 10^6/ul (4.70-6.10); WHITE BLOOD COUNT 5.12 K/ul (4.2-10.2)
[2020-06-28 05:17] LABS: ALANINE AMINOTRANSFERASE 14.7 U/L (0-50); ALBUMIN 3.75 g/dL (3.5-5.0); ALKALINE PHOSPHATASE 68.9 U/L (56-119); ASPARTATE AMINO TRANSFERASE 19.3 U/L (17-59); BILIRUBIN,TOTAL 0.88 mg/dL (0.2-1.3); BLOOD UREA NITROGEN 31.6 mg/dL (9-20); CALCIUM 8.21 mg/dL (8.4-10.2); CHLORIDE 98.1 mmol/L (98-107); CREATININE 0.96 mg/dL (0.60-1.10); GLUCOSE 112.6 mg/dL (74-106); POTASSIUM 4.27 mmol/L (3.5-5.1); SODIUM 145.9 mmol/L (134.5-145); TOTAL PROTEIN 7.49 g/dL (6.3-8.2)
[2020-06-28 05:24] LABS: ABG PH 7.21 (7.35-7.45)
[2020-06-28 05:38] LABS: CARBON DIOXIDE 43.3 mmol/L (22-30.0)
[2020-06-28 06:28] LABS: ABG PH 7.27 (7.35-7.45)
[2020-06-28 09:28] LABS: ABG PH 7.27 (7.35-7.45)
[2020-06-28] MEDS ORDERED: SOLU-MEDROL 40 MG IVP SCH (09:33)
[2020-06-28] MEDS ORDERED: DUONEB NEB SCH ×2 (09:35→10:00)
[2020-06-28] MEDS ORDERED: LASIX IVP ONE (09:36)
[2020-06-28] MEDS: DUONEB NEB SCH ×3 (10:11→19:29)
[2020-06-28] MEDS: SODIUM CHLORIDE 1,000 ML IV SCH (11:09)
[2020-06-28] MEDS: HYDROCHLOROTHIAZIDE PO SCH (11:10)
[2020-06-28] MEDS: NORVASC PO SCH (11:10)
[2020-06-28] MEDS: LIPITOR PO SCH (11:11)
[2020-06-28] MEDS: ELIQUIS PO SCH ×2 (11:11→20:50)
[2020-06-28] MEDS: SOLU-MEDROL 125 MG IVP SCH ×2 (11:39→18:30)
[2020-06-28] MEDS: ATIVAN PO PRN (22:20)
[2020-06-29] MEDS: SOLU-MEDROL 125 MG IVP SCH ×3 (01:40→17:26)
[2020-06-29] MEDS: DUONEB NEB SCH ×4 (05:00→19:32)
[2020-06-29 05:10] LABS: HEMATOCRIT 49.8 % (42.0-52.0); HEMOGLOBIN 15.3 g/dl (14.0-18.0); MEAN CORPUSCULAR HEMOGLOBIN 31.1 pg (27.0-31.0); MEAN CORPUSCULAR HGB CONC 30.7 (31.8-35.4); MEAN CORPUSCULAR VOLUME 101.2 fl (80.0-94.0); PLATELET COUNT 167 10^3/uL (140-440); RED BLOOD COUNT 4.92 10^6/ul (4.70-6.10); WHITE BLOOD COUNT 5.96 K/ul (4.2-10.2)
[2020-06-29] MEDS: SODIUM CHLORIDE 1,000 ML IV SCH ×3 (05:13→19:05)
[2020-06-29 05:16] LABS: ANISOCYTOSIS NOT PRESENT (NOT PRESENT)
[2020-06-29 05:24] LABS: ALANINE AMINOTRANSFERASE 13.5 U/L (0-50); ALBUMIN 3.68 g/dL (3.5-5.0); ALKALINE PHOSPHATASE 60.8 U/L (56-119); ASPARTATE AMINO TRANSFERASE 23.1 U/L (17-59); BILIRUBIN,TOTAL 0.86 mg/dL (0.2-1.3); BLOOD UREA NITROGEN 34.1 mg/dL (9-20); CALCIUM 8.14 mg/dL (8.4-10.2); CHLORIDE 95.3 mmol/L (98-107); CREATININE 0.84 mg/dL (0.60-1.10); GLUCOSE 148.4 mg/dL (74-106); POTASSIUM 4.62 mmol/L (3.5-5.1); SODIUM 141.7 mmol/L (134.5-145); TOTAL PROTEIN 7.24 g/dL (6.3-8.2)
[2020-06-29 05:26] LABS: ABG PH 7.35 (7.35-7.45)
[2020-06-29 05:30] LABS: CARBON DIOXIDE 39.3 mmol/L (22-30.0)
[2020-06-29] MEDS: ELIQUIS PO SCH ×2 (09:18→20:57)
[2020-06-29] MEDS: LIPITOR PO SCH (09:20)
[2020-06-29] MEDS: NORVASC PO SCH (09:21)
[2020-06-29] MEDS: ATIVAN PO PRN ×3 (09:21→20:57)
[2020-06-29] MEDS: HYDROCHLOROTHIAZIDE PO SCH (09:21)
[2020-06-29] MEDS: PROTONIX PO SCH (13:57)
[2020-06-30] MEDS: SOLU-MEDROL 125 MG IVP SCH ×2 (02:11→09:10)
[2020-06-30 04:59] LABS: HEMATOCRIT 50.3 % (42.0-52.0); HEMOGLOBIN 15.6 g/dl (14.0-18.0); MEAN CORPUSCULAR HEMOGLOBIN 31.1 pg (27.0-31.0); MEAN CORPUSCULAR VOLUME 100.2 fl (80.0-94.0); PLATELET COUNT 173 10^3/uL (140-440); RDW COEFFICIENT OF VARIATION 13.2 % (11.6-14.8); RED BLOOD COUNT 5.02 10^6/ul (4.70-6.10); WHITE BLOOD COUNT 8.23 K/ul (4.2-10.2)
[2020-06-30 05:12] LABS: BLOOD UREA NITROGEN 35.6 mg/dL (9-20); CALCIUM 8.44 mg/dL (8.4-10.2); CHLORIDE 96.3 mmol/L (98-107); CREATININE 0.82 mg/dL (0.60-1.10); GLUCOSE 145.1 mg/dL (74-106); POTASSIUM 4.64 mmol/L (3.5-5.1); SODIUM 139.1 mmol/L (134.5-145)
[2020-06-30 05:19] LABS: ANISOCYTOSIS NOT PRESENT (NOT PRESENT)
[2020-06-30] MEDS: DUONEB NEB SCH ×4 (05:38→20:00)
[2020-06-30] MEDS: PROTONIX PO SCH (06:00)
[2020-06-30] MEDS: ATIVAN PO PRN ×5 (06:01→22:41)
[2020-06-30] MEDS: NORVASC PO SCH (09:11)
[2020-06-30] MEDS: LIPITOR PO SCH (09:11)
[2020-06-30] MEDS: HYDROCHLOROTHIAZIDE PO SCH (09:11)
[2020-06-30] MEDS: SODIUM CHLORIDE 1,000 ML IV SCH ×2 (09:11→17:00)
[2020-06-30] MEDS: ELIQUIS PO SCH ×2 (09:12→20:06)
[2020-06-30] MEDS: PREDNISONE PO SCH (18:04)
[2020-06-30] MEDS: LASIX TAB PO SCH (18:04)
[2020-07-01] MEDS: ATIVAN PO PRN (02:08)
[2020-07-01 04:54] LABS: HEMATOCRIT 48.3 % (42.0-52.0); HEMOGLOBIN 15.3 g/dl (14.0-18.0); MEAN CORPUSCULAR HEMOGLOBIN 31.5 pg (27.0-31.0); MEAN CORPUSCULAR HGB CONC 31.7 (31.8-35.4); MEAN CORPUSCULAR VOLUME 99.6 fl (80.0-94.0); PLATELET COUNT 154 10^3/uL (140-440); RDW COEFFICIENT OF VARIATION 12.9 % (11.6-14.8); RED BLOOD COUNT 4.85 10^6/ul (4.70-6.10); WHITE BLOOD COUNT 7.75 K/ul (4.2-10.2)
[2020-07-01 05:00] LABS: ANISOCYTOSIS NOT PRESENT (NOT PRESENT)
[2020-07-01 05:07] LABS: BLOOD UREA NITROGEN 30.4 mg/dL (9-20); CALCIUM 8.21 mg/dL (8.4-10.2); CREATININE 0.71 mg/dL (0.60-1.10); GLUCOSE 182.6 mg/dL (74-106); POTASSIUM 4.44 mmol/L (3.5-5.1); SODIUM 137.5 mmol/L (134.5-145)
[2020-07-01 05:13] LABS: CARBON DIOXIDE 39.9 mmol/L (22-30.0)
[2020-07-01] MEDS: DUONEB NEB SCH ×3 (05:13→14:15)
[2020-07-01] MEDS: PROTONIX PO SCH (05:44)
[2020-07-01] MEDS: LASIX TAB PO SCH (05:44)
[2020-07-01] MEDS: NORVASC PO SCH (08:45)
[2020-07-01] MEDS: HYDROCHLOROTHIAZIDE PO SCH (08:45)
[2020-07-01] MEDS: LIPITOR PO SCH (08:46)
[2020-07-01] MEDS: ELIQUIS PO SCH (08:46)
[2020-07-01] MEDS: PREDNISONE PO SCH (08:46)
--- NOTE | 2020-07-01 12:43 | RS.PTINEVL ---
Subjective - Patient information Date of Evaluation: 07/01/20 Date of Arrival on Unit: 06/27/20 Usual Living Arrangement: Alone Living Arrangement Comments: Daughters check on him daily and help as needed. He has caretakers 4-5 hours/day for meals and showering. Medical History Comments:: Hx of TBI, CHF, COPD, HTN, Oxygen dependent, History of falls. Medications: see EMR Subjective Information/ Patient Comments:: Patient states "Do you want to make love?" upon therapist introducing herself. After therapist explained that we want to see if he needs help standing and walking, patient agrees to try. 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 Sensation - Sensation Comments: States sensation is intact in LE's. Balance - Sitting Balance and Reactions Static Sitting Balance: Fair Dynamic Sitting Balance: Fair - Standing Balance and Reactions Static Standing Balance: Fair Dynamic Standing Balance: Fair Functional Mobility - Bed Mobility Comments:: Patient presents sitting up in chair. - Transfers Sit to Stand: Mod Assist, 2 person assist, Verbal Cues, Tactile Cues Stand to Sit: Mod Assist, 2 person assist, Verbal Cues, Tactile Cues Comments:: Patient very impulsive, gives no notice when ready to sit down. - Safety Awareness Safety Awareness: Poor LEOBARDO INDEX SCORE: NA Ambulation - Ambulation Weight Bearing Status: FWB Assistive Device Used: Rolling Walker Distance: 4-5 steps, followed by chair Assistance needed with Ambulation: Mod Assist, 2 person assist Gait Deviations: Wide Based gait, Shuffling gait, Ataxic gait, Lacks step continuity Ambulation Comments: While taking steps, patient states "I'm going to sit" while he begins to sit down. Factors Affecting Ambulation: Decreased Coordination, Decreased Safety, Cognitive Status Treatment time - Time with patient Length of Evaluation: 15 Total treatment time: 16 Assessment - Assessment Problem List:: Decreased level of function, Requires training/education, Decreased safety/Risk of falls, Cognitive status limits abilities Rehab Potential: Fair (in tank terminal gauger care setting) Candidate for Swing Bed for Therapy Services?: Not a candidate for Swing Bed due to cognitive status. Comments: Mr. Flannery is unable to return home alone at this time . Patient does not present to be a candidate for skilled therapy during this acute stay due to cognitive status. He currently is very impulsive and does not show the ability to demonstrate carry over to achieve goals in this setting. He may, however be a candidate for skilled therapy in tank terminal gauger care setting. Evaluation Complexity: HISTORY: Medium, EXAM OF BODY SYSTEMS: Medium, CLINICAL PRESENTATION: Medium, CLINICAL DECISION MAKING: Medium Patient's Goal(s): None given Plan Frequency of Treatment: One time treatment Duration of Treatment: One Time Treatment Anticipated [facility] Treatment Diagnosis (ICD 10 Codes): Z91.81, R26.81 Has the Physician been added for Co-signature?: Yes
[2020-07-01 14:26] VITALS: BP 136/73; TEMP 96.8
== END 2020-07-01 15:57 | DRG 71 ==
LOC: ED 13:57 → MEDSURG A 20:09
PROVIDERS: ADMIT Family Medicine; ATTEND Family Medicine
DX: I10 Essential (primary) hypertension; R60.0 Localized edema; R33.9 Retention of urine, unspecified; E11.9 Type 2 diabetes mellitus without complications; Z79.01 Long term (current) use of anticoagulants; R53.83 Other fatigue; R41.82 Altered mental status, unspecified; Z20.822 Contact with and (suspected) exposure to COVID-19; R06.02 Shortness of breath; E78.5 Hyperlipidemia, unspecified; N18.30 Chronic kidney disease, stage 3 unspecified; E66.01 Morbid (severe) obesity due to excess calories; R26.2 Difficulty in walking, not elsewhere classified; R05 Cough; S80.01XA Contusion of right knee, initial encounter; G47.33 Obstructive sleep apnea (adult) (pediatric); G93.41 Metabolic encephalopathy; R53.1 Weakness; E87.2 Acidosis; I50.32 Chronic diastolic (congestive) heart failure

== ENCOUNTER 2024-02-19 09:21 | Inpatient (IN) ==
--- NOTE | 2024-02-19 09:39 | ED.PDOC ---
General ED Provider: Dr. NGUYEN REAVES, DO Chief Complaint: Extremity Swelling/Pain Stated Complaint: My feet hurt 78-year-old gentleman coming from home with primary complaint of foot pain. States this become uncomfortable to ambulate on. It is isolated to his feet. Left greater than right. Patient states its mostly my left great toe. That toe is red swollen and tender. When asked how long it has been going on he states for a month but family states 2 days . Unclear if this is the actual. Otherwise he denies complaints. Denies calf pain knee or hip pain denies abdominal pain nausea vomiting diarrhea constipation denies chest pain cough or shortness of breath. Patient is chronically on oxygen at 2 L. He denies headache back pain neck pain no sore throat no ear pain or pressure no fever chills night sweats. 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 *PRN dosing is not "usually" associated with tolerance. *Patients are at higher risk of over-sedation and aspiration. What is Opioid Tolerant?: *Opioid Tolerance implies less than the expected response to an opioid. *Acquired tolerance is defined by the patient taking 60mg of oral morphine daily (or equianalgesic dose of another opioid) for 1 week or more. *Often associated with chronic pain. *May take more than usual dose to achieve desired pain control. Review of Systems Review Of Systems Constitutional: Reports No symptoms Respiratory: Reports No symptoms Cardiac: Reports No symptoms GI: Reports No symptoms [facility] Medical History Cardiomegaly I51.7 - Cardiomegaly (ICD-10) History of fall Z91.81 - History of falling (ICD-10) Oxygen dependent Z99.81 - Dependence on supplemental oxygen (ICD-10) COPD (chronic obstructive pulmonary disease) J44.9 - Chronic obstructive pulmonary disease, unspecified (ICD-10) Morbid obesity E66.01 - Morbid (severe) obesity due to excess calories (ICD-10) Dyslipidemia E78.5 - Hyperlipidemia, unspecified (ICD-10) Hypertension I10 - Essential (primary) hypertension (ICD-10) Traumatic brain injury S06.9X9A - Unspecified intracranial injury with loss of consciousness of unspecified duration, initial encounter (ICD-10) Family History (Updated 02/19/24 @ 12:24 by MICH SLATER, RN) Other No known health problems Social History Smoking and tobacco status: Never smoker Alcohol intake: never History of recent travel: No Physical Exam Physical Exam Appearance: Reports Well-appearing, No pain distress and Well-nourished Ill-appearing: None Pain Distress: None Eyes: Reports SHERIN, EOMI and Conjunctiva clear ENT: Reports Ears normal, Nose normal and Oropharynx normal Neck: Supple (No JVD) Respiratory: Reports Airway patent, Breath sounds clear, Breath sounds equal and Respirations nonlabored Cardiovascular: Reports RRR, Pulses normal, No rub and No murmur GI/: Reports Soft and Hepatomegaly Musculoskeletal: Reports Normal strength, Edema (2+ knees down) and Other (Left great toe swollen inflamed warm to the touch); Denies Calf tenderness Skin: Reports Warm, Dry and Normal color Psychiatric: Reports Affect appropriate and Mood appropriate Interpretation EKG Interpretation Time of EKG #1: 11:00 Rate: Normal Rhythm: Sinus (Appears sinus computer read as accelerated junctional, disagree) Ectopy: None [place]: [place] ST Segment: Other (Twelve-lead EKG as read by me shortly after obtaining sinus rate of 77 with normal axis and intervals there is considerable motion artifact but no obvious T wave abnormalities no STEMI) Radiology Interpretation Radiology Interpretation By: ED Physician Radiology Results: Negative Exam Interpreted: CXR Radiology Interpretation By: ED Physician Radiology Results: Positive Exam Interpreted: Other (foot xray) Xray Comments: severe osteoarthritis and great toe soft tissue swelling Re-Evaluation Re-Evaluation Time of Re-Evaluation: 10:14 Status: Unchanged Vital Signs Stable: Yes Appearance: NAD Lungs: Clear Skin: Warm and Dry Additional Comments: Reviewed patient's laboratory testing to this point. Patient has a marked elevated uric acid ESR is pending bed x-ray is suggestive of acute gout. Review of prior history does show previous episode. Have given Toradol will reevaluate shortly. I did take into consideration the possibility of an infectious process versus DVT versus CHF. Patient is on Eliquis and has no calf tenderness, the patient's swelling is focal to the great toe. And within normal BNP and chest x-ray find CHF to be unlikely. Re-Evaluation Time of Re-Evaluation: 10:39 Status: Unchanged Pain Level: 12/22 Additional Comments: Attempted to ambulate the patient however he could barely stand and that is with the assistance of 2 staff members. States he cannot stand or walk because of the pain he states it is unbearable Course Course 02/19/24 09:39 02/19/24 09:39 Orders, Labs, Meds: Lab Review 02/19/24 02/19/24 09:39 10:58 WBC 11.41 H RBC 4.61 L Hgb 14.0 Hct 43.5 MCV 94.4 H MCH 30.4 MCHC 32.2 RDW Coeff of Salud 12.3 Plt Count 242 Immature Gran % (Auto) 0.4 Neut % (Auto) 81.4 H Lymph % (Auto) 9.0 L [place] % (Auto) 8.0 Eos % (Auto) 1.1 Baso % (Auto) 0.1 Neut # (Auto) 9.3 H Lymph # (Auto) 1.0 [place] # (Auto) 0.9 Eos # (Auto) 0.1 Baso # (Auto) 0.0 Immature Gran # (Auto) 0.1 ESR 72 H Sodium 140.1 Potassium 3.75 Chloride 94.5 L Carbon Dioxide 35.8 H Anion Gap 13.55 BUN 47.0 H Creatinine 1.50 H Estimated GFR (MDRD) 45.00 BUN/Creatinine Ratio 31.33 Glucose 98.7 Uric Acid 11.34 H Calcium 8.92 Total Bilirubin 0.91 AST 62.7 H ALT 19.3 Alkaline Phosphatase 63.5 NT-Pro-B Natriuret Pep 205 Total Protein 8.91 H Albumin 4.51 Globulin 4.40 Albumin/Globulin Ratio 1.02 SARS CoV-2 RNA Rapid GANESH Negative Orders Category Date Time Status PLACE PATIENT OBSERVATION .TO MEDSURG (NON-MONITORED ADMISSION 02/19/24 10:46 Active BED) EKG-(ED ONLY) Stat CARDIO 02/19/24 09:31 Completed VITAL SIGNS Q8HR CARE 02/19/24 10:46 Active 2 GRAM SODIUM DIET DIETARY 02/19/24 Lunch Ordered CBC W/ AUTO DIFF Stat LAB 02/19/24 09:39 Completed CMP [COMPREHENSIVE METABOLIC PANEL] Stat LAB 02/19/24 09:39 Completed COVID [SARS COV-2 RNA RAPID GANESH] Stat LAB 02/19/24 10:58 Completed ESR Stat LAB 02/19/24 09:39 Completed PROBNP ED [NT-PROBNP(ED)] Stat LAB 02/19/24 09:39 Completed URIC ACID Stat LAB 02/19/24 09:39 Completed Ketorolac Tromethamine [Toradol] Meds 02/19/24 09:35 Discontinued 30 mg IVP ONCE ONE Morphine Sulfate [Morphine 4 mg/ml Syringe] Meds 02/19/24 10:46 Discontinued 4 mg IM ONCE ONE Ondansetron HCl/Pf [Zofran 4 mg/2 ml] Meds 02/19/24 10:46 Discontinued 4 mg IVP ONCE ONE RESUSCITATION STATUS Routine OTHERS 02/19/24 10:46 Ordered CHEST, 1V AP ONLY Stat RADS 02/19/24 09:31 Completed FOOT, LEFT 3 VIEWS Stat RADS 02/19/24 09:31 Completed Medications Discontinued Medications Generic Name Dose Route Start Last Admin Trade Name Katie PRN Reason Stop Dose Admin Ketorolac Tromethamine 30 mg 02/19/24 09:35 02/19/24 09:41 Ketorolac Tromethamine 30 Mg/Ml Vial IVP 02/19/24 09:36 30 mg ONCE ONE Administration Morphine Sulfate 4 mg 02/19/24 10:46 02/19/24 10:54 Morphine Sulfate 4 Mg/Ml Syringe IM 02/19/24 10:47 4 mg ONCE ONE Administration Ondansetron HCl 4 mg 02/19/24 10:46 02/19/24 10:54 Ondansetron Hcl/Pf 4 Mg/2 Ml Sdv IVP 02/19/24 10:47 4 mg ONCE ONE Administration Vital Signs: Temp Pulse Resp BP Pulse Ox 02/19/24 09:25 97.8 F 90 20 132/69 96 Discharge Plan Discharge Patient Disposition: PLACED OBSERVATION Discharge Problem: Intractable neuropathic pain of left foot, Ambulatory dysfunction Acute gout Qualifiers: Gout site: toe Gout etiology: unspecified cause Laterality: left Qualified Code(s): M10.9 - Gout, unspecified Did you review [place] [employer] for ALL controlled substances?: Not Applicable ED Provider: NGUYEN REAVES Physician Progress Note: Family has expressed concern with her inability to care for him at home. In general he is impulsive but with his pain being uncontrolled he is even more so. Did attempt to ambulate patient in the emergency department without success patient required 2 people just to hold him up. States that it is the pain. Case discussed with hospitalist who will admit. Discussed with the hospitalist also about concern for possible infectious process he will evaluate During the patients stay in the Emergency Department, and after a physical exam focused on the patients chief complaint. I have concluded that the patients condition warrants inpatient admission/observation at this time. This decision was made in conjunction with testing done in the ED and after discussing the need for admission with the patient and any family present. This decision was made in conjunction with any testing done, physical exam and information provided by the patient and any family present. I took into consideration discharge but feel that either the patients condition, social supports, access to aftercare, and/or safety justify admission at this time. I have discussed this case with the admitting physician Care was assumed by admitting provider at the time the admission request was placed. I was available for emergencies after that point or if specifically identified here: none This chart was completed using voice recognition dictation software. Please excuse any errors of hand candle dipper including grammatical, punctuation and spelling errors. Please contact me with any questions regarding this chart
[2024-02-19] MEDS: TORADOL IVP ONE (09:41)
[2024-02-19 09:47] LABS: BASOPHILS % (AUTO) 0.1 % (0.0-3.0); EOSINOPHILS # (AUTO) 0.1 K/ul (0.0-0.7); EOSINOPHILS % (AUTO) 1.1 % (0.0-7.0); HEMATOCRIT 43.5 % (42.0-52.0); IMMATURE GRANULOCYTE # (AUTO) 0.1 (0.0-1.0); IMMATURE GRANULOCYTE % (AUTO) 0.4 % (0.0-5.0); MEAN CORPUSCULAR HEMOGLOBIN 30.4 pg (27.0-31.0); MEAN CORPUSCULAR HGB CONC 32.2 (31.8-35.4); MEAN CORPUSCULAR VOLUME 94.4 fl (80.0-94.0); MONOCYTES # (AUTO) 0.9 K/uL (0.4-2.0); NEUTROPHILS # (AUTO) 9.3 K/ul (2.0-6.9); NEUTROPHILS % (AUTO) 81.4 % (42.2-75.2); PLATELET COUNT 242 10^3/uL (140-440); RDW COEFFICIENT OF VARIATION 12.3 % (11.6-14.8); RED BLOOD COUNT 4.61 10^6/ul (4.70-6.10); WHITE BLOOD COUNT 11.41 K/ul (4.2-10.2)
[2024-02-19 10:00] LABS: ALANINE AMINOTRANSFERASE 19.3 U/L (0-50); ALBUMIN 4.51 g/dL (3.5-5.0); ALKALINE PHOSPHATASE 63.5 U/L (56-119); ASPARTATE AMINO TRANSFERASE 62.7 U/L (17-59); BILIRUBIN,TOTAL 0.91 mg/dL (0.2-1.3); CALCIUM 8.92 mg/dL (8.4-10.2); CARBON DIOXIDE 35.8 mmol/L (22-30.0); CHLORIDE 94.5 mmol/L (98-107); CREATININE 1.5 mg/dL (0.60-1.10); GLUCOSE 98.7 mg/dL (74-106); POTASSIUM 3.75 mmol/L (3.5-5.1); SODIUM 140.1 mmol/L (134.5-145); TOTAL PROTEIN 8.91 g/dL (6.3-8.2); URIC ACID 11.34 mg/dL (3.5-8.5)
--- NOTE | 2024-02-19 10:09 | DI ---
EXAM: CHEST RADIOGRAPH TECHNIQUE: Single frontal chest radiograph. HISTORY: Leg swelling. COMPARISON: 06/27/2020 FINDINGS: The lungs are clear without focal consolidation. No pleural effusion or pneumothorax. The cardiomed iastinal silhouette, obdulia and pulmonary vascular markings are within normal limits. No acute osseous abnormality. IMPRESSION: 1. No acute cardiopulmonary process.
--- NOTE | 2024-02-19 10:10 | DI ---
EXAM: LEFT FOOT RADIOGRAPH TECHNIQUE: 3 views of the left foot HISTORY: Pain and swelling. COMPARISON: None. FINDINGS: Severe first metatarsophalangeal osteoarthritis. No acute fracture or dislocation. Nonspecific fore foot soft tissue swelling. Moderate osteoarthritis at the great toe interphalangeal joint . No radi opaque foreign body. IMPRESSION: - No acute fracture or dislocation. 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
[2024-02-19 10:25] LABS: ERYTHROCYTE SEDIMENTATION RATE 72 mm/hr (0-15)
[2024-02-19] MEDS: ZOFRAN SDV IVP ONE (10:54)
[2024-02-19] MEDS: MORPHINE 4 MG/ML SYRINGE IM ONE (10:54)
[2024-02-19 12:01] LABS: SARS COV-2 RNA RAPID NAAT NEGATIVE (NEGATIVE)
[2024-02-19 12:35] VITALS: BMI 43.4
[2024-02-19] MEDS ORDERED: TORADOL IVP PRN (13:32)
[2024-02-19] MEDS ORDERED: MORPHINE 2 MG/ML SYRINGE IVP PRN (13:33)
[2024-02-19] MEDS ORDERED: PREDNISONE PO SCH (13:35)
--- NOTE | 2024-02-19 14:57 | PCM ---
Date of Service Date Seen by Provider: 02/19/24 Time Seen by Provider: 12:45 Admit Day/Time Admission Date: 02/19/24 Admission Time: 10:46 Reason for Admission Chief Complaint: INTRACTABLE PAIN,GOUT, AMBULATORY DISFUNCTION Hospital Provider Hospital Provider: SHAWNA Austin, [facility] Primary Care Physician Primary Care Physician: TIFFANIE MOODY History of Present Illness History of Present Illness: Patient is a 78 y/o male with a PMH of TBI, COPD, CHF, HTN, HLD, and morbid obesity who presents with complaints of left foot pain. Patient is poor historian so history is limited. Patient states pain, swelling and redness to left great toe started 4 days ago. Pain worse with walking and improves with rest. No fever/chills or myalgias. No chest pain or shortness of breath. ER workup showed elevated ESR at 72 as well as elevated uric acid level. X-ray showed arthritis. Patient was treated with IV toradol and morphine. Denies history of gout, denies alcohol use. Patient admitted to med surg for observation for intractable pain and further management. Case Discussed With Case Discussed With: Patient's case was discussed with the ER Physicians, Dr. Mendes [facility] Medical History Cardiomegaly I51.7 - Cardiomegaly (ICD-10) History of fall Z91.81 - History of falling (ICD-10) Oxygen dependent Z99.81 - Dependence on supplemental oxygen (ICD-10) COPD (chronic obstructive pulmonary disease) J44.9 - Chronic obstructive pulmonary disease, unspecified (ICD-10) Morbid obesity E66.01 - Morbid (severe) obesity due to excess calories (ICD-10) Dyslipidemia E78.5 - Hyperlipidemia, unspecified (ICD-10) Hypertension I10 - Essential (primary) hypertension (ICD-10) Traumatic brain injury S06.9X9A - Unspecified intracranial injury with loss of consciousness of unspecified duration, initial encounter (ICD-10) Family History (Updated 02/19/24 @ 12:24 by MICH SLATER RN) Other No known health problems Social History Smoking and tobacco status: Never smoker Alcohol intake: never History of recent travel: No Allergies Allergies Allergy/AdvReac Type Severity Reaction Status Date / Time No Known Allergies Allergy Verified 02/19/24 09:29 Current Medications Home Medications hydrochlorothiazide 12.5 mg tablet 12.5 mg PO DAILY 12/05/13 [History Confirmed 02/19/24 Last Taken 12/04/13] acetaminophen 325 mg tablet 325 mg PO Q4H PRN Fever Or Pain #1 tab 07/01/20 [Rx Confirmed 02/19/24 Last Taken Unknown] amlodipine 5 mg tablet (Norvasc) 5 mg PO DAILY #1 tab 07/01/20 [Rx Confirmed 02/19/24 Last Taken Unknown] furosemide 20 mg tablet (Lasix) 20 mg PO DAILY #1 tab 07/01/20 [Rx Confirmed 02/19/24 Last Taken Unknown] Home Acetaminophen (Acetaminophen 325 Mg Tablet) 325 mg PO Q4H PRN PRN Reason: FEVER/PAIN Amlodipine Besylate (Amlodipine Besylate 5 Mg Tablet) 5 mg PO DAILY SILVERIO Enoxaparin Sodium (Enoxaparin Sodium 40 Mg/0.4 Ml Syr) 40 mg SUBCUT DAILY SILVERIO Cefazolin Sodium/Dextrose (Ancef 2 Gm/50 Ml D5w) 2 gm in 50 mls @ 75 mls/hr IV Q8HR SILVERIO Stop: 02/22/24 20:59 Ketorolac Tromethamine (Ketorolac Tromethamine 15 Mg/Ml Vial) 15 mg IVP Q6HR PRN PRN Reason: pain Stop: 02/22/24 13:32 Prednisone (Prednisone 20 Mg Tablet) 40 mg PO DAILYWM2 SILVERIO Discontinued Medications Ketorolac Tromethamine (Ketorolac Tromethamine 30 Mg/Ml Vial) 30 mg IVP ONCE ONE Stop: 02/19/24 09:36 Last Admin: 02/19/24 09:41 Dose: 30 mg Morphine Sulfate (Morphine Sulfate 4 Mg/Ml Syringe) 4 mg IM ONCE ONE Stop: 02/19/24 10:47 Last Admin: 02/19/24 10:54 Dose: 4 mg Ondansetron HCl (Ondansetron Hcl/Pf 4 Mg/2 Ml Sdv) 4 mg IVP ONCE ONE Stop: 02/19/24 10:47 Last Admin: 02/19/24 10:54 Dose: 4 mg Opioid Naive vs. Tolerant What is Opioid Naive?: *Opioid Naive implies the patient is not already taking opioids or not chronically receiving opioids on a daily basis. *PRN dosing is not "usually" associated with tolerance. *Patients are at higher risk of over-sedation and aspiration. What is Opioid Tolerant?: *Opioid Tolerance implies less than the expected response to an opioid. *Acquired tolerance is defined by the patient taking 60mg of oral morphine daily (or equianalgesic dose of another opioid) for 1 week or more. *Often associated with chronic pain. *May take more than usual dose to achieve desired pain control. Review of Systems Constitutional: Denies Fever or Fatigue Head: Reports Normocephalic and Atraumatic Eyes: Denies Vision Changes Ears: Denies No symptoms Nose: Denies No symptoms Mouth: Denies No symptoms Throat: Denies No symptoms Cardiovascular: Denies Chest pain or Palpitations Respiratory: Denies Cough, Shortness of air or Wheeze Gastrointestinal: Denies Nausea, Vomiting, Diarrhea or Abdominal pain Genitourinary: Denies Dysuria or Hematuria Musculoskeletal: Reports Other (+ for left great toe and foot pain) Dermatologic: Reports Other (swelling redness to left great toe) Endocrine: Denies No symptoms Hematology: Denies No symptoms Neurological: Denies Headache, Dizziness, Syncope or Weakness Psychiatric: Denies Depression, Anxiety or Suicidal Physical examination Most Recent Vital Signs: Most Recent Vital Signs Temperature 96.7 F L 02/19/24 12:18 Temperature Source Oral 02/19/24 12:18 Temperature Source Infrared 02/19/24 09:25 Pulse Rate 76 02/19/24 12:18 Respiratory Rate 16 02/19/24 12:18 Blood Pressure 109/85 02/19/24 11:50 Blood Pressure Left Arm 127/68 02/19/24 12:18 Blood Pressure Position Supine 02/19/24 12:18 O2 Sat by Pulse Oximetry 92 L 02/19/24 12:18 Oxygen Delivery Method Nasal Cannula 02/19/24 13:12 Oxygen Flow Rate 2 02/19/24 12:18 Height 5 ft 9 in 02/19/24 12:18 Weight 133.6 kg 02/19/24 12:18 Telemetry Heart Rate 75 06/28/20 19:00 Telemetry SPO2 84 L 06/28/20 13:00 Appearance: Positive Well-appearing, Well-nourished, No Apparent Distress and Obese Skin: Positive Warm and Good Turgor HEENT: Positive Normocephalic and Atraumatic Neck: Positive Supple and Midline Trachea Chest/Lungs: Positive Symmetrical With Equal Breath Sounds and Clear to Auscultation Bilaterally Heart: Positive RRR and Pulses Normal; Negative Murmur GI/: Positive Soft, Nontender, Bowel Sounds Normal and No Distention Musculoskeletal: Positive Tenderness (tenderness, edema, and warmth overlying left great toe, erythema to left great toe extending to the dorsal surface of left foot, no open area or drainage noted, left great toe appears arthritis) Extremities: Positive Edema (generalized edema to BLE) Neurological: Positive Sensation Intact, Motor intact, Alert, Oriented, Focal Deficit and Muscle Strength 5/5 in Upper and Lower Extremities Bilaterally Psychiatric: Positive Appropriate Mood and Appropriate Affect Labs This Visit Labs This Visit: Labs This Visit 02/19/24 02/19/24 09:39 10:58 WBC 11.41 H RBC 4.61 L Hgb 14.0 Hct 43.5 MCV 94.4 H MCH 30.4 MCHC 32.2 RDW Coeff of Salud 12.3 Plt Count 242 Immature Gran % (Auto) 0.4 Neut % (Auto) 81.4 H Lymph % (Auto) 9.0 L [place] % (Auto) 8.0 Eos % (Auto) 1.1 Baso % (Auto) 0.1 Neut # (Auto) 9.3 H Lymph # (Auto) 1.0 [place] # (Auto) 0.9 Eos # (Auto) 0.1 Baso # (Auto) 0.0 Immature Gran # (Auto) 0.1 ESR 72 H Sodium 140.1 Potassium 3.75 Chloride 94.5 L Carbon Dioxide 35.8 H Anion Gap 13.55 BUN 47.0 H Creatinine 1.50 H Estimated GFR (MDRD) 45.00 BUN/Creatinine Ratio 31.33 Glucose 98.7 Uric Acid 11.34 H Calcium 8.92 Total Bilirubin 0.91 AST 62.7 H ALT 19.3 Alkaline Phosphatase 63.5 NT-Pro-B Natriuret Pep 205 Total Protein 8.91 H Albumin 4.51 Globulin 4.40 Albumin/Globulin Ratio 1.02 SARS CoV-2 RNA Rapid GANESH Negative Review Statement Review Statement: I have independently reviewed and interpreted the labs/EKGs/imaging that were ordered by the ER provider. I have reviewed all outside records that are available currently in our EMR including imaging/notes/labs from previous visits. Assessment (1) Acute gout: Status: Acute Code(s): M10.9 - Gout, unspecified SNOMED Code(s): 337434514 (2) Intractable neuropathic pain of left foot: Status: Acute Code(s): M79.2 - Neuralgia and neuritis, unspecified SNOMED Code(s): 999649413 (3) Ambulatory dysfunction: Status: Acute Code(s): R26.2 - Difficulty in walking, not elsewhere classified SNOMED Code(s): 436987127 Plan Plan: 1. Intractable left foot pain in setting of suspected acute gout flare however cannot r/o cellulitis - continue toradol IV Q6 PRN for now - supportive care, ice, elevate - procal 0.58, will start ancef and prednisone, check MRSA swab - repeat ESR and CRP in am - if not improving consider CT scan in am. 2. acute gout flare vs. cellulitis - plan as above 3. COPD - not in exacerbation - home meds will be reviewed once verified and started accordinaly 4. Heart failure - unknow type, not in exacerbation - hold lasix and HCTZ for todaydue to renal function, re-evaluate in am 5. renal failure - CKD vs acute - no recent records, patient poor historian - Cr. 1.5 on admission BUN 47, holding diuretics - repeat labs in am 6. Hypertension - chronic - continue norvasc, holding HCTZ due to renal function DVT Prophylaxis: lovenox Time Spent: Greater than 80 minutes spent with patient, 50% of the time spent with this patient was devoted to counseling and coordination of care. Advanced Care Planning: [5] minutes spent discussing advance care planning. Smoking Cessation: 3-10 minutes spent discussing smoking cessation. Disposition: Admit to: Med Surg observation Discussed Plan of Care with Dr. Man Medications Medication Orders: Medications Ordered Category Date Time Status Acetaminophen [Tylenol] Meds 02/19/24 13:43 Active 325 mg PO Q4H PRN Amlodipine Besylate [Norvasc] Meds 02/20/24 09:00 Active 5 mg PO DAILY Enoxaparin Sodium [Lovenox] Meds 02/19/24 13:30 Active 40 mg SUBCUT DAILY Ketorolac Tromethamine [Toradol] Meds 02/19/24 13:32 Active 15 mg IVP Q6HR PRN
[2024-02-19] MEDS: LOVENOX SUBCUT SCH (15:34)
[2024-02-19] MEDS: [UNRECOGNIZED DRUG - OTHER] IV SCH (16:09)
[2024-02-19] MEDS: ANCEF IV SCH (16:09)
[2024-02-19 17:13] LABS: BILIRUBIN,URINE Negative (NEGATIVE); CLARITY,URINE Clear (CLEAR); COLOR,URINE Yellow (YELLOW); GLUCOSE, URINE (UA) Negative (NEGATIVE); KETONES,URINE Negative (NEGATIVE); LEUKOCYTE ESTERASE ,URINE Negative (NEGATIVE); NITRITE,URINE Negative (NEGATIVE); PH,URINE 5.5 (5-9); PROTEIN,URINE 1+ (NEGATIVE); URINE, BLOOD 1+ (NEGATIVE); UROBILINOGEN,URINE 0.2 (0.2)
[2024-02-19 17:14] LABS: SQUAMOUS EPITHELIAL CELL,UR NOT PRESENT (0-5)
[2024-02-20 05:17] LABS: BASOPHILS % (AUTO) 0.2 % (0.0-3.0); EOSINOPHILS # (AUTO) 0.1 K/ul (0.0-0.7); EOSINOPHILS % (AUTO) 1.5 % (0.0-7.0); HEMATOCRIT 39.6 % (42.0-52.0); HEMOGLOBIN 12.6 g/dl (14.0-18.0); IMMATURE GRANULOCYTE % (AUTO) 0.3 % (0.0-5.0); LYMPHOCYTES # (AUTO) 1.1 K/uL (0.60-3.4); LYMPHOCYTES % (AUTO) 11.9 (10.0-50.0); MEAN CORPUSCULAR HEMOGLOBIN 30.2 pg (27.0-31.0); MEAN CORPUSCULAR HGB CONC 31.8 (31.8-35.4); MONOCYTES # (AUTO) 0.7 K/uL (0.4-2.0); MONOCYTES % (AUTO) 7.2 (0-10); NEUTROPHILS # (AUTO) 7.2 K/ul (2.0-6.9); NEUTROPHILS % (AUTO) 78.9 % (42.2-75.2); PLATELET COUNT 231 10^3/uL (140-440); RDW COEFFICIENT OF VARIATION 12.2 % (11.6-14.8); RED BLOOD COUNT 4.17 10^6/ul (4.70-6.10); WHITE BLOOD COUNT 9.13 K/ul (4.2-10.2)
[2024-02-20 05:38] LABS: ALANINE AMINOTRANSFERASE 17.3 U/L (0-50); ALBUMIN 4.01 g/dL (3.5-5.0); ALKALINE PHOSPHATASE 61.1 U/L (56-119); ASPARTATE AMINO TRANSFERASE 48.1 U/L (17-59); BILIRUBIN,TOTAL 0.53 mg/dL (0.2-1.3); BLOOD UREA NITROGEN 41.8 mg/dL (9-20); CALCIUM 8.7 mg/dL (8.4-10.2); CARBON DIOXIDE 38.7 mmol/L (22-30.0); CHLORIDE 95.7 mmol/L (98-107); CREATININE 1.61 mg/dL (0.60-1.10); GLUCOSE 123.9 mg/dL (74-106); POTASSIUM 4.04 mmol/L (3.5-5.1); SODIUM 141.3 mmol/L (134.5-145); TOTAL PROTEIN 7.96 g/dL (6.3-8.2)
[2024-02-20 06:03] LABS: ERYTHROCYTE SEDIMENTATION RATE 78 mm/hr (0-15)
[2024-02-20] MEDS: PREDNISONE PO SCH (08:18)
[2024-02-20] MEDS: NORVASC PO SCH (08:18)
[2024-02-20] MEDS: TYLENOL PO PRN (09:40)
--- NOTE | 2024-02-20 11:09 | PCM.PROG ---
Date/Time Seen Date Seen by Provider: 02/20/24 Time Seen by Provider: 08:50 Provider Provider: [facility] Chief Complaint Chief Complaint: INTRACTABLE PAIN,GOUT, AMBULATORY DISFUNCTION Subjective Subjective: Per nursing report patient has complained of left foot pain. He states it is hurting more today. Able to stand but won't ambulate on it. Pt has hx of TBI and it complicates his history. Lives at home alone. Has support of family. Objective Appearance: Positive No Apparent Distress and Alert and Oriented x3 Chest/Lungs: Positive Clear to Auscultation Bilaterally; Negative Rales, Rhonci or Wheezes Heart: Positive RRR GI/: Positive Soft, Nontender, Bowel Sounds Normal and No Distention Neurological: Positive Cranial Nerves Intact, Alert and Oriented Additional Findings: +left foot - tenderness, edema, and warmth overlying left great toe specifically 1 MTP joint, erythema to left great toe extending to the dorsal surface of left foot and medial ankle area. No open area or drainage noted, left great toe appears arthritic. Pulses and sensation intact. Vital Signs Vital Signs: Vital Signs: Last 24 Hours 02/19/24 11:50 02/19/24 12:18 02/19/24 12:18 Temperature 96.7 F L Temperature Source Oral Pulse Rate 75 76 Respiratory Rate 15 16 Blood Pressure 109/85 Blood Pressure Mean Blood Pressure Left Arm 127/68 Blood Pressure Location Blood Pressure Position Supine O2 Sat by Pulse Oximetry 94 L 92 L Oxygen Delivery Method Nasal Cannula Nasal Cannula Oxygen Flow Rate 2 2 2 Height 5 ft 9 in Weight 133.6 kg 02/19/24 13:00 02/19/24 13:12 02/19/24 15:00 Temperature Temperature Source Pulse Rate Respiratory Rate Blood Pressure Blood Pressure Mean Blood Pressure Left Arm Blood Pressure Location Blood Pressure Position O2 Sat by Pulse Oximetry Oxygen Delivery Method Nasal Cannula Nasal Cannula Nasal Cannula Oxygen Flow Rate Height Weight 02/19/24 15:23 02/19/24 16:42 02/19/24 18:00 Temperature Temperature Source Pulse Rate Respiratory Rate Blood Pressure Blood Pressure Mean Blood Pressure Left Arm Blood Pressure Location Blood Pressure Position O2 Sat by Pulse Oximetry Oxygen Delivery Method Nasal Cannula Nasal Cannula Nasal Cannula Oxygen Flow Rate Height Weight 02/19/24 19:00 02/19/24 20:00 02/19/24 20:00 Temperature Temperature Source Pulse Rate Respiratory Rate Blood Pressure Blood Pressure Mean Blood Pressure Left Arm Blood Pressure Location Blood Pressure Position O2 Sat by Pulse Oximetry Oxygen Delivery Method Nasal Cannula Nasal Cannula Nasal Cannula Oxygen Flow Rate 2 Height Weight 02/19/24 20:17 02/19/24 21:00 02/19/24 22:00 Temperature 97.8 F Temperature Source Temporal Artery Scan Pulse Rate 77 Respiratory Rate 19 Blood Pressure 149/84 H Blood Pressure Mean 105 Blood Pressure Left Arm Blood Pressure Location Right Arm Blood Pressure Position O2 Sat by Pulse Oximetry 98 Oxygen Delivery Method Room Air Nasal Cannula Nasal Cannula Oxygen Flow Rate Height Weight 02/19/24 22:51 02/19/24 23:00 02/20/24 00:00 Temperature Temperature Source Pulse Rate Respiratory Rate Blood Pressure Blood Pressure Mean Blood Pressure Left Arm Blood Pressure Location Blood Pressure Position O2 Sat by Pulse Oximetry Oxygen Delivery Method Nasal Cannula Nasal Cannula Nasal Cannula Oxygen Flow Rate 2 Height Weight 02/20/24 01:00 02/20/24 02:00 02/20/24 03:00 Temperature Temperature Source Pulse Rate Respiratory Rate Blood Pressure Blood Pressure Mean Blood Pressure Left Arm Blood Pressure Location Blood Pressure Position O2 Sat by Pulse Oximetry Oxygen Delivery Method Nasal Cannula Nasal Cannula Nasal Cannula Oxygen Flow Rate Height Weight 02/20/24 04:00 02/20/24 05:00 02/20/24 05:08 Temperature 97.6 F Temperature Source Temporal Artery Scan Pulse Rate 75 Respiratory Rate 18 Blood Pressure 147/76 H Blood Pressure Mean 99 Blood Pressure Left Arm Blood Pressure Location Left Arm Blood Pressure Position Supine O2 Sat by Pulse Oximetry 92 L Oxygen Delivery Method Nasal Cannula Nasal Cannula Nasal Cannula Oxygen Flow Rate 2 Height Weight 02/20/24 05:39 02/20/24 06:00 02/20/24 07:00 Temperature Temperature Source Pulse Rate Respiratory Rate Blood Pressure Blood Pressure Mean Blood Pressure Left Arm Blood Pressure Location Blood Pressure Position O2 Sat by Pulse Oximetry 93 L Oxygen Delivery Method Nasal Cannula Nasal Cannula Nasal Cannula Oxygen Flow Rate 2 Height Weight 02/20/24 07:25 02/20/24 07:30 02/20/24 08:41 Temperature Temperature Source Pulse Rate Respiratory Rate Blood Pressure Blood Pressure Mean Blood Pressure Left Arm Blood Pressure Location Blood Pressure Position O2 Sat by Pulse Oximetry Oxygen Delivery Method Nasal Cannula Nasal Cannula Nasal Cannula Oxygen Flow Rate 2 Height Weight 02/20/24 09:43 02/20/24 10:00 02/20/24 11:00 Temperature Temperature Source Pulse Rate Respiratory Rate Blood Pressure Blood Pressure Mean Blood Pressure Left Arm Blood Pressure Location Blood Pressure Position O2 Sat by Pulse Oximetry 92 L Oxygen Delivery Method Nasal Cannula Nasal Cannula Nasal Cannula Oxygen Flow Rate 2 Height Weight Lab Results Lab Results: Lab Results: Last 24 Hours 02/20/24 02/19/24 02/19/24 04:37 17:00 10:58 WBC 9.13 RBC 4.17 L Hgb 12.6 L Hct 39.6 L MCV 95.0 H MCH 30.2 MCHC 31.8 RDW Coeff of Salud 12.2 Plt Count 231 Immature Gran % (Auto) 0.3 Neut % (Auto) 78.9 H Lymph % (Auto) 11.9 [place] % (Auto) 7.2 Eos % (Auto) 1.5 Baso % (Auto) 0.2 Neut # (Auto) 7.2 H Lymph # (Auto) 1.1 [place] # (Auto) 0.7 Eos # (Auto) 0.1 Baso # (Auto) 0.0 Immature Gran # (Auto) 0.0 ESR 78 H Sodium 141.3 Potassium 4.04 Chloride 95.7 L Carbon Dioxide 38.7 H Anion Gap 10.94 BUN 41.8 H Creatinine 1.61 H Estimated GFR (MDRD) 42.00 BUN/Creatinine Ratio 25.96 Glucose 123.9 H Calcium 8.70 Total Bilirubin 0.53 AST 48.1 ALT 17.3 Alkaline Phosphatase 61.1 Total Protein 7.96 Albumin 4.01 Globulin 3.95 Albumin/Globulin Ratio 1.01 Procalcitonin Urine Color Yellow Urine Clarity Clear Urine pH 5.5 Ur Specific [place] 1.020 Urine Protein 1+ H Urine Glucose (UA) Negative Urine Ketones Negative Urine Blood 1+ H Urine Nitrite Negative Urine Bilirubin Negative Urine Urobilinogen 0.2 Ur Leukocyte Esterase Negative Urine Microscopic RBC 2-5 Ur Squamous Epith Cells Not present SARS CoV-2 RNA Rapid GANESH Negative 02/19/24 09:39 WBC RBC Hgb Hct MCV MCH MCHC RDW Coeff of [place] Plt Count Immature Gran % (Auto) Neut % (Auto) Lymph % (Auto) [place] % (Auto) Eos % (Auto) Baso % (Auto) Neut # (Auto) Lymph # (Auto) [place] # (Auto) Eos # (Auto) Baso # (Auto) Immature Gran # (Auto) ESR Sodium Potassium Chloride Carbon Dioxide Anion Gap BUN Creatinine Estimated GFR (MDRD) BUN/Creatinine Ratio Glucose Calcium Total Bilirubin AST ALT Alkaline Phosphatase Total Protein Albumin Globulin Albumin/Globulin Ratio Procalcitonin 0.58 H Urine Color Urine Clarity Urine pH Ur Specific [place] Urine Protein Urine Glucose (UA) Urine Ketones Urine Blood Urine Nitrite Urine Bilirubin Urine Urobilinogen Ur Leukocyte Esterase Urine Microscopic RBC Ur Squamous Epith Cells SARS CoV-2 RNA Rapid GANESH Additional Comments Additional Comments: I have independently reviewed and interpreted the labs/EKGs/imaging ordered during this hospital stay. I have reviewed outside records that are available in our EMR that pertain to medical stay including imaging/notes/labs from previous visits. Active Medications Active Medications: Medications Generic Name Dose Route Start Last Admin Trade Name Freq PRN Reason Stop Dose Admin Acetaminophen 325 mg 02/19/24 13:43 02/20/24 09:40 Acetaminophen 325 Mg Tablet PO 325 mg Q4H PRN Administration FEVER/PAIN Amlodipine Besylate 5 mg 02/20/24 09:00 02/20/24 08:18 Amlodipine Besylate 5 Mg Tablet PO 5 mg DAILY SILVERIO Administration Enoxaparin Sodium 40 mg 02/19/24 13:30 02/20/24 08:18 Enoxaparin Sodium 40 Mg/0.4 Ml Syr SUBCUT 40 mg DAILY SILVERIO Administration Cefazolin Sodium/Dextrose 2 gm in 50 mls @ 75 mls/hr 02/19/24 16:00 02/20/24 08:20 Ancef 2 Gm/50 Ml D5w IV 02/22/24 15:59 75 mls/hr Q8H SILVERIO Administration Ketorolac Tromethamine 15 mg 02/19/24 13:32 Ketorolac Tromethamine 15 Mg/Ml Vial IVP 02/22/24 13:32 Q6HR PRN pain Prednisone 40 mg 02/20/24 07:30 02/20/24 08:18 Prednisone 20 Mg Tablet PO 40 mg DAILYWM2 SILVERIO Administration Assessment (1) Acute gout: Status: Acute Code(s): M10.9 - Gout, unspecified SNOMED Code(s): 092171254 (2) Intractable neuropathic pain of left foot: Status: Acute Code(s): M79.2 - Neuralgia and neuritis, unspecified SNOMED Code(s): 608525340 (3) Ambulatory dysfunction: Status: Acute Code(s): R26.2 - Difficulty in walking, not elsewhere classified SNOMED Code(s): 403011515 Plan Plan: 1. Intractable left foot pain in setting of suspected acute gout flare however cannot r/o cellulitis - continue toradol IV Q6 PRN for now - supportive care, ice, elevate - procal 0.58, continue ancef and prednisone, check MRSA swab 2. acute gout flare vs. cellulitis - plan as above - Has hx of gout, may need started on allopurinol outpatient 3. COPD - not in exacerbation - Cont home meds 4. Heart failure - unknown type, not in exacerbation - Continue lasix, hold hctz 5. renal failure - CKD vs acute - no recent records, patient poor historian - Cr. 1.5 on admission BUN 47 - repeat labs in am 6. Hypertension - chronic - continue norvasc, holding HCTZ due to renal function DVT Prophylaxis: lovenox Dispo: Patient still unable to ambulate due to pain, flip inpatient today. Review Statement Review Statement: I have personally discussed and reviewed the patient's visit/currently labs/imaging/decision making with Dr. Man, my supervising attending. Greater that 50 minutes spent with patient, 50% of the time spent with this patient was devoted to counseling and coordination of care.
[2024-02-21] MEDS: LASIX TAB PO SCH (05:09)
[2024-02-21 05:47] LABS: BASOPHILS % (AUTO) 0.1 % (0.0-3.0); EOSINOPHILS % (AUTO) 0.1 % (0.0-7.0); HEMATOCRIT 38.1 % (42.0-52.0); HEMOGLOBIN 12.3 g/dl (14.0-18.0); IMMATURE GRANULOCYTE % (AUTO) 0.4 % (0.0-5.0); LYMPHOCYTES # (AUTO) 1.2 K/uL (0.60-3.4); LYMPHOCYTES % (AUTO) 12.8 (10.0-50.0); MEAN CORPUSCULAR HEMOGLOBIN 30.3 pg (27.0-31.0); MEAN CORPUSCULAR HGB CONC 32.3 (31.8-35.4); MEAN CORPUSCULAR VOLUME 93.8 fl (80.0-94.0); MONOCYTES # (AUTO) 0.6 K/uL (0.4-2.0); MONOCYTES % (AUTO) 6.1 (0-10); NEUTROPHILS # (AUTO) 7.3 K/ul (2.0-6.9); NEUTROPHILS % (AUTO) 80.5 % (42.2-75.2); PLATELET COUNT 263 10^3/uL (140-440); RDW COEFFICIENT OF VARIATION 12.1 % (11.6-14.8); RED BLOOD COUNT 4.06 10^6/ul (4.70-6.10); WHITE BLOOD COUNT 9.05 K/ul (4.2-10.2)
[2024-02-21 06:00] LABS: ALANINE AMINOTRANSFERASE 14.4 U/L (0-50); ALBUMIN 3.99 g/dL (3.5-5.0); ALKALINE PHOSPHATASE 62.6 U/L (56-119); ASPARTATE AMINO TRANSFERASE 38.3 U/L (17-59); BILIRUBIN,TOTAL 0.49 mg/dL (0.2-1.3); CALCIUM 8.99 mg/dL (8.4-10.2); CARBON DIOXIDE 37.8 mmol/L (22-30.0); CHLORIDE 97.6 mmol/L (98-107); CREATININE 1.33 mg/dL (0.60-1.10); GLUCOSE 122.6 mg/dL (74-106); POTASSIUM 3.52 mmol/L (3.5-5.1); SODIUM 140.1 mmol/L (134.5-145); TOTAL PROTEIN 7.8 g/dL (6.3-8.2)
--- NOTE | 2024-02-21 10:32 | RS.PTINEVL ---
Subjective Patient information Date of Evaluation: 02/21/24 Date of Arrival on Unit: 02/19/24 Admitted From:: Home Diagnosis: Foot pain, gout, cellulitis Usual Living Arrangement: Alone Living Arrangement Comments: Daughters check on him daily and help as needed. He has caretakers 4-5 hours/day for meals and showering. Home Environment: House Medical History: Hypertension, COPD and CHF Medical History Comments:: TBI, cardiomegaly LATEX ALLERGY?: No Medications: see chart Subjective Information/ Patient Comments:: pt states "foot hurts". pt is impulsive and requires repeated instructions. Level of function Prior to this admission, the patient could do the following:: Independent Selfcare, Independent ADL's, Independent Ambulation and Perform Diagram Clerk/Cooking Abilities prior to this admission: pt has caregivers a couple of hours a day and daughters check on him. Current Level of Function: Partially Dependent Current Equipment Used at Home: oxygen, walker, wheelchair, shower chair Pain Assessement Location both feet: Description: Sharp and Aching Pain Behavior: Moaning and Facial Grimacing Pain Aggravating Factors: Standing and Walking Pain Alleviating Factors: Medication Interventions Objective Patient Orientation: Person and Place Current Interventions: Oxygen Observation: pitting edema BLE Range of Motion ROM Right Upper Extremity AROM: WFL's Left Upper Extremity AROM: WFL's Right Lower Extremity AROM: WFL's Left Lower Extremity AROM: WFL's Muscle Strength Muscle Strength Right Upper Extremity: Mild Weakness (grossly 4/5) Left Upper Extremity: Mild Weakness (grossly 4/5) Right Lower Extremity: Mild Weakness (hip flex 4/5, knee flex/ext 4/5, ankle not MMT due to pain) Left Lower Extremity: Mild Weakness (hip flex 4/5, knee flex/ext 4/5, ankle not MMT due to pain) Sensation Sensation Right Upper Extremity: Intact/Normal Left Upper Extremity: Intact/Normal Right Lower Extremity: Intact/Normal Left Lower Extremity: Intact/Normal Palpation Palpation Findings: Tenderness (B feet and lower leg) Balance Sitting Balance and Reactions Static Sitting Balance: Fair Dynamic Sitting Balance: Fair (fair -) Standing Balance and Reactions Static Standing Balance: Poor Dynamic Standing Balance: Poor Comments Balance Assessment Comments: pt with significant increased lat sway, decreased step length Functional Mobility Bed Mobility Comments:: pt up in bedside chair Transfers Sit to Stand: CGA Stand to Sit: CGA and Min Assist Comments:: pt is impulsive and requires multiple cues for safety. Safety Awareness Safety Awareness: Poor LEOBARDO INDEX SCORE: n/a Ambulation Ambulation Assistive Device Used: Rolling Walker Orthotic/Prosthetic Device: No Distance: 20ft Assistance needed with Ambulation: Min Assist, Mod Assist, 1 person assist and 2 person assist Quality of Ambulation: pt amb with increased lat sway, decreased step length, pt requires assist for walker placement, keeps walker out too far in front of him. Therapist attempts to hold walker and encourage pt to step into walker, however pt continues to push rwx forward Gait Deviations: Wide Based gait, Forward posture, Short stride and Deviates from path Factors Affecting Ambulation: Decreased Balance, Pain, Weakness, Decreased Coordination, Decreased Safety, Cognitive Status and Limited Endurance Treatment time Units charged Gait trainin Time with patient Length of Evaluation: 19 Total treatment time: 27 Patient Education Education Patient Education: Activity Modification and Education of Plan of Care Teaching Recipient: Patient Teaching Methods: Discussion Comments: discussion regarding POC with nursing staff Assessment Assessment Problem List:: Decreased level of function, Requires training/education, Decreased safety/Risk of falls, Weakness, Pain limits previous level of function and Cognitive status limits abilities Rehab Potential: Fair Further Therapy Indicated?: Yes Candidate for Swing Bed for Therapy Services?: Feel pt may not be a good candidate for swing bed due to pt cognitive status with TBI, difficulty with carryover and following directions. Evaluation Complexity: HISTORY: Medium, EXAM OF BODY SYSTEMS: Medium, CLINICAL PRESENTATION: Medium and CLINICAL DECISION MAKING: Medium Patient's Goal(s): pt unable to express Short Term Goals GOAL #1: pt demonstrate rolling and scooting to edge of bed SBA Goal to be met by: 02/23/24 GOAL #2: Transfer sup to/from sit CGA Goal to be met by: 02/23/24 GOAL #3: Transfer sit to/from stand CGA Goal to be met by: 02/23/24 GOAL #4: pt amb with rwx 50ft with min x 1 Goal to be met by: 02/23/24 Mill Machinist Goals GOAL #1: Transfer sup to/from sit to/from stand SBA Goal to be met by: 02/25/24 GOAL #2: pt amb with rwx functional household distances SBA Goal to be met by: 02/25/24 GOAL #3: Improve BLE strength 4+/5 Goal to be met by: 02/25/24 Plan Plan of Care: Therapeutic EX and Therapeutic Activity Other:: gait training Frequency of Treatment: 1-2 X day, as tolerated Duration of Treatment: 4 days Anticipated Discharge Destination: Home Treatment Diagnosis (ICD 10 Codes): impaired balance R 26.81 gait difficulty R 26.2 weakness M62.81 Has the Physician been added for Co-signature?: Yes
--- NOTE | 2024-02-21 11:16 | PCM.PROG ---
Date/Time Seen Date Seen by Provider: 02/21/24 Time Seen by Provider: 09:00 Provider Provider: STEVEN BERGER [facility]-C[facility] Chief Complaint Chief Complaint: INTRACTABLE PAIN,GOUT, AMBULATORY DISFUNCTION Subjective Subjective: Patient states his foot is still hurting. However he was able to ambulate to door and back with a walker and assist of 2. He clearly has pain when walking. Very unsteady gait. Fall risk. Objective Appearance: Positive No Apparent Distress and Alert and Oriented x3 Chest/Lungs: Positive Clear to Auscultation Bilaterally; Negative Rales, Rhonci or Wheezes Heart: Positive RRR GI/: Positive Soft, Nontender, Bowel Sounds Normal and No Distention Neurological: Positive Cranial Nerves Intact, Alert and Oriented Additional Findings: +left foot - tenderness, edema, and warmth overlying left great toe specifically 1 MTP joint, erythema to left great toe extending to the dorsal surface of left foot and medial ankle area. No open area or drainage noted, left great toe appears arthritic. Pulses and sensation intact. Vital Signs Vital Signs: Vital Signs: Last 24 Hours 02/20/24 11:50 02/20/24 12:49 02/20/24 13:15 Temperature Temperature Source Pulse Rate Pulse Rate [Apical] Respiratory Rate Blood Pressure Blood Pressure Mean Blood Pressure Location Blood Pressure Position O2 Sat by Pulse Oximetry 94 L Oxygen Delivery Method Nasal Cannula Nasal Cannula Nasal Cannula Oxygen Flow Rate 2 Height Weight 02/20/24 13:51 02/20/24 19:35 02/20/24 19:37 Temperature 97.1 F L Temperature Source Tympanic Pulse Rate 76 Pulse Rate [Apical] Respiratory Rate 18 Blood Pressure 117/64 Blood Pressure Mean 81 Blood Pressure Location Right Arm Blood Pressure Position Sitting O2 Sat by Pulse Oximetry 84 L 95 Oxygen Delivery Method Nasal Cannula Nasal Cannula Nasal Cannula Oxygen Flow Rate 2 2 Height Weight 02/20/24 19:38 02/20/24 20:22 02/21/24 04:58 Temperature 97.7 F 97.8 F Temperature Source Temporal Artery Scan Temporal Artery Scan Pulse Rate 78 69 Pulse Rate [Apical] Respiratory Rate 15 18 Blood Pressure 113/62 125/76 Blood Pressure Mean 79 92 Blood Pressure Location Right Arm Left Arm Blood Pressure Position Sitting Sitting O2 Sat by Pulse Oximetry 95 97 96 Oxygen Delivery Method Nasal Cannula Nasal Cannula Room Air Oxygen Flow Rate 2 2 2 Height Weight 02/21/24 05:32 02/21/24 07:57 02/21/24 09:09 Temperature Temperature Source Pulse Rate Pulse Rate [Apical] 72 Respiratory Rate 20 Blood Pressure Blood Pressure Mean Blood Pressure Location Blood Pressure Position O2 Sat by Pulse Oximetry 96 Oxygen Delivery Method Nasal Cannula Nasal Cannula Oxygen Flow Rate 2 2 Height 5 ft 9 in Weight 133.6 kg 02/21/24 10:00 Temperature Temperature Source Pulse Rate Pulse Rate [Apical] Respiratory Rate Blood Pressure Blood Pressure Mean Blood Pressure Location Blood Pressure Position O2 Sat by Pulse Oximetry 94 L Oxygen Delivery Method Nasal Cannula Oxygen Flow Rate 2 Height Weight Lab Results Lab Results: Lab Results: Last 24 Hours 02/21/24 05:11 WBC 9.05 RBC 4.06 L Hgb 12.3 L Hct 38.1 L MCV 93.8 MCH 30.3 MCHC 32.3 RDW Coeff of [place]ud 12.1 Plt Count 263 Immature Gran % (Auto) 0.4 Neut % (Auto) 80.5 H Lymph % (Auto) 12.8 [place] % (Auto) 6.1 Eos % (Auto) 0.1 Baso % (Auto) 0.1 Neut # (Auto) 7.3 H Lymph # (Auto) 1.2 [place] # (Auto) 0.6 Eos # (Auto) 0.0 Baso # (Auto) 0.0 Immature Gran # (Auto) 0.0 Sodium 140.1 Potassium 3.52 Chloride 97.6 L Carbon Dioxide 37.8 H Anion Gap 8.22 BUN 38.0 H Creatinine 1.33 H Estimated GFR (MDRD) 52.00 BUN/Creatinine Ratio 28.57 Glucose 122.6 H Calcium 8.99 Total Bilirubin 0.49 AST 38.3 ALT 14.4 Alkaline Phosphatase 62.6 Total Protein 7.80 Albumin 3.99 Globulin 3.81 Albumin/Globulin Ratio 1.04 Additional Comments Additional Comments: I have independently reviewed and interpreted the labs/EKGs/imaging ordered during this hospital stay. I have reviewed outside records that are available in our EMR that pertain to medical stay including imaging/notes/labs from previous visits. Active Medications Active Medications: Medications Generic Name Dose Route Start Last Admin Trade Name Freq PRN Reason Stop Dose Admin Acetaminophen 325 mg 02/19/24 13:43 02/20/24 09:40 Acetaminophen 325 Mg Tablet PO 325 mg Q4H PRN Administration FEVER/PAIN Amlodipine Besylate 5 mg 02/20/24 09:00 02/21/24 08:13 Amlodipine Besylate 5 Mg Tablet PO 5 mg DAILY SILVREIO Administration Enoxaparin Sodium 40 mg 02/19/24 13:30 02/21/24 08:13 Enoxaparin Sodium 40 Mg/0.4 Ml Syr SUBCUT 40 mg DAILY SILVERIO Administration Furosemide 20 mg 02/21/24 06:00 02/21/24 05:09 Furosemide 20 Mg Tablet PO 20 mg QDAC2 SILVERIO Administration Cefazolin Sodium/Dextrose 2 gm in 50 mls @ 75 mls/hr 02/19/24 16:00 02/21/24 07:47 Ancef 2 Gm/50 Ml D5w IV 02/22/24 15:59 75 mls/hr Q8H SILVERIO Administration Ketorolac Tromethamine 15 mg 02/19/24 13:32 Ketorolac Tromethamine 15 Mg/Ml Vial IVP 02/22/24 13:32 Q6HR PRN pain Prednisone 40 mg 02/20/24 07:30 02/21/24 07:45 Prednisone 20 Mg Tablet PO 40 mg DAILYWM2 SILVERIO Administration Assessment (1) Acute gout: Status: Acute Code(s): M10.9 - Gout, unspecified SNOMED Code(s): 160621645 (2) Intractable neuropathic pain of left foot: Status: Acute Code(s): M79.2 - Neuralgia and neuritis, unspecified SNOMED Code(s): 211961717 (3) Ambulatory dysfunction: Status: Acute Code(s): R26.2 - Difficulty in walking, not elsewhere classified SNOMED Code(s): 000338207 Plan Plan: 1. Intractable left foot pain in setting of suspected acute gout flare however cannot r/o cellulitis - Improving, able to ambulate some today but with very antalgic gait - [place] prn - supportive care, ice, elevate - procal 0.58, continue ancef and prednisone 2. acute gout flare vs. cellulitis - plan as above - Has hx of gout, may need started on allopurinol outpatient 3. COPD - not in exacerbation - Cont home meds 4. Heart failure - unknown type, not in exacerbation - Continue lasix, hold hctz 5. renal failure - CKD vs acute - no recent records, patient poor historian - Cr. 1.5 on admission BUN 47 - repeat labs in am 6. Hypertension - chronic - continue norvasc, holding HCTZ due to renal function DVT Prophylaxis: lovenox Dispo: Patient still unable to ambulate well due to pain, major fall risk, unsafe discharge plan, possible discharge tomorrow if pain improved. Review Statement Review Statement: I have personally discussed and reviewed the patient's visit/currently labs/imaging/decision making with Dr. Man, my supervising attending. Greater that 50 minutes spent with patient, 50% of the time spent with this patient was devoted to counseling and coordination of care.
--- NOTE | 2024-02-21 13:03 | RS.OTINEVL ---
Subjective Patient information Date of Evaluation: 02/21/24 Date of Arrival on Unit: 02/19/24 Admitted From:: In-House Transfer Diagnosis: Intractable pain, Gout, ambulatory disfunction. PRECAUTIONS: TBI, Impulsive,Poor historian, O2 dependent Usual Living Arrangement: Alone Living Arrangement Comments: Daughters check on him daily and help as needed. He has caretakers 4-5 hours/day for meals and showering. Home Environment: House Medical History: Hypertension, COPD and CHF Medical History Comments:: Hx of TBI, CHF, COPD, HTN, Oxygen dependent, History of falls. LATEX ALLERGY?: No Medications: see EMR Subjective Information/ Patient Comments:: "I gotta pee." "Is it in there?" "Here it goes!" "Is it in there?" Level of function Prior to this admission, the patient could do the following:: Independent Selfcare, Independent ADL's, Independent Ambulation, Perform Head Of Acquisitions/Cooking and Drive Abilities prior to this admission: Pt was at home with caregivers 4-5 hours a day. Pt is not safe at home alone. CGA to stand. Min to Mod A to transfer. Current Level of Function: Partially Dependent Current Equipment Used at Home: oxygen, walker, wheelchair, shower chair Pain Assessment Pain Side: left Pain Location Body Site: Foot Pain Aggravating Factors: ADL's (Pt complains of Left foot hurting while trying to walk.), Exercise/Activity, Standing, Walking and Stair Climbing Pain Alleviating Factors: Medication, Sitting, Standing and Lying Supine Interventions Objective Patient Orientation: Person and Situation Current Interventions: Oxygen Observation: Pt is very impulsive and is not always using coordinated movements to transfer with RW. Pt requires verbal cues and encouragement to stay up in the RW. Interventions ROM Right Upper Extremity AROM: WFL's Left Upper Extremity AROM: WFL's Strength Right Upper Extremity: Mild Weakness Left Upper Extremity: Mild Weakness Sensation Right Upper Extremity: Intact/Normal Left Upper Extremity: Intact/Normal Balance Sitting Balance Static Sitting Balance: Fair Dynamic Sitting Balance: Poor Standing Balance Static Standing Balance: Fair Dynamic Standing Balance: Poor ADL Skills Self Feeding Self Feeding: CGA Grooming Grooming: Min Assist Bathing Bathing UE: CGA Bathing LE: Min Assist Bathing Set-up: Shower Dressing Dressing UE: CGA Dressing LE: Mod Assist Toilet Management Toilet Hygiene: Supervision Toilet Clothing Management: CGA Comments Comments:: Pt reports he cannot complete using the urinal himself. Pt can do this Independently. Functional Mobility Transfers Sit to Stand: CGA Stand to Sit: CGA Stand Pivot Transfers: Min Assist, Verbal Cues and Tactile Cues (Pt is quick with turns using the RW.) Ambulation Weight Bearing Status: FWB Assistive Device Used: Rolling Walker Assistance needed with Ambulation: Min Assist Safety Awareness Safety Awareness: Fair LEOBARDO INDEX SCORE: . Additional Treatment Performed Additional units charged ADL: 8 Time with patient Length of Evaluation: 15 Total treatment time: 23 Patient Education Patient Education: Education of diagnosis and Home Exercise Program Teaching Recipient: Patient Teaching Methods: Discussion Assessment Problem List:: Decreased level of function, Requires training/education, Decreased safety/Risk of falls, Weakness and Cognitive status limits abilities Rehab Potential: Poor Candidate for Swing Bed for Therapy Services?: No Comments: Pt is currently at base line. Lack of carry over. Evaluation Complexity: HISTORY: Medium, EXAM OF BODY SYSTEMS: Medium and CLINICAL DECISION MAKING: Medium Patient's Goal(s): To go home. Short Term Goals Goals GOAL 1: Increase grooming to CGA Goal to be met by: 02/23/24 GOAL 2: Increase functional mobility to SBA Goal to be met by: 02/23/24 GOAL 3: Increase functional balance to fair+ Goal to be met by: 02/23/24 Snf Goals GOAL 1: Increase grooming to (I) Goal to be met by: 02/24/24 GOAL 2: Increase functional mobility to [place] Goal to be met by: 02/24/24 GOAL 3: Increase functional balance to good Goal to be met by: 02/24/24 Plan Plan of Care: Therapeutic EX, Neuromuscular Re-Educ, Therapeutic Activity and Self-Care/Home Management Frequency of Treatment: 1-2 X day, as tolerated Duration of Treatment: 3 days Anticipated Discharge Destination: [facility] Treatment Diagnosis (ICD 10 Codes): Z74.1 Need for assistance with personal care, R53.1 Weakness Has the Physician been added for Co-signature?: Yes
[2024-02-22 05:40] LABS: BASOPHILS % (AUTO) 0.1 % (0.0-3.0); EOSINOPHILS % (AUTO) 0.3 % (0.0-7.0); HEMATOCRIT 37.6 % (42.0-52.0); HEMOGLOBIN 12.3 g/dl (14.0-18.0); IMMATURE GRANULOCYTE % (AUTO) 0.2 % (0.0-5.0); LYMPHOCYTES # (AUTO) 1.5 K/uL (0.60-3.4); MEAN CORPUSCULAR HEMOGLOBIN 30.6 pg (27.0-31.0); MEAN CORPUSCULAR HGB CONC 32.7 (31.8-35.4); MEAN CORPUSCULAR VOLUME 93.5 fl (80.0-94.0); MONOCYTES # (AUTO) 0.5 K/uL (0.4-2.0); MONOCYTES % (AUTO) 5.8 (0-10); NEUTROPHILS # (AUTO) 6.6 K/ul (2.0-6.9); NEUTROPHILS % (AUTO) 76.6 % (42.2-75.2); PLATELET COUNT 254 10^3/uL (140-440); RDW COEFFICIENT OF VARIATION 12.1 % (11.6-14.8); RED BLOOD COUNT 4.02 10^6/ul (4.70-6.10); WHITE BLOOD COUNT 8.67 K/ul (4.2-10.2)
[2024-02-22 05:53] LABS: ALANINE AMINOTRANSFERASE 13.5 U/L (0-50); ALBUMIN 3.81 g/dL (3.5-5.0); ALKALINE PHOSPHATASE 55.6 U/L (56-119); ASPARTATE AMINO TRANSFERASE 45.1 U/L (17-59); BILIRUBIN,TOTAL 0.32 mg/dL (0.2-1.3); BLOOD UREA NITROGEN 38.1 mg/dL (9-20); CALCIUM 8.86 mg/dL (8.4-10.2); CHLORIDE 96.4 mmol/L (98-107); CREATININE 1.08 mg/dL (0.60-1.10); GLUCOSE 109.8 mg/dL (74-106); POTASSIUM 3.81 mmol/L (3.5-5.1); SODIUM 139.7 mmol/L (134.5-145); TOTAL PROTEIN 7.61 g/dL (6.3-8.2)
[2024-02-22] MEDS: HYDROCHLOROTHIAZIDE PO SCH (09:01)
[2024-02-22] MEDS: NORCO 5-325 PO PRN (11:22)
--- NOTE | 2024-02-22 12:39 | PCM.PROG ---
Date/Time Seen Date Seen by Provider: 02/22/24 Time Seen by Provider: 08:30 Provider Provider: STEVEN BERGER PA-C, [facility] Chief Complaint Chief Complaint: INTRACTABLE PAIN,GOUT, AMBULATORY DISFUNCTION Subjective Subjective: Patient states his foot is feeling better but still painful. Complains of pain while walking but declines pain pill. Has been able to ambulate with assistance to the bathroom which is an improvement. Objective Appearance: Positive No Apparent Distress and Alert and Oriented x3 Chest/Lungs: Positive Clear to Auscultation Bilaterally; Negative Rales, Rhonci or Wheezes Heart: Positive RRR GI/: Positive Soft, Nontender, Bowel Sounds Normal and No Distention Neurological: Positive Cranial Nerves Intact, Alert and Oriented Additional Findings: +left foot - tenderness, edema, and warmth overlying left great toe specifically 1 MTP joint, erythema to left great toe extending to the dorsal surface of left foot and medial ankle area. No open area or drainage noted, left great toe appears arthritic. Pulses and sensation intact. Overall improved today Right foot - second toe with bruising noted Vital Signs Vital Signs: Vital Signs: Last 24 Hours 02/21/24 14:00 02/21/24 14:00 02/21/24 19:22 Temperature 97.5 F L Temperature Source Temporal Artery Scan Pulse Rate 77 Respiratory Rate 16 Blood Pressure 123/73 Blood Pressure Mean 89 Blood Pressure Location Right Arm Blood Pressure Position Sitting O2 Sat by Pulse Oximetry 92 L 94 L Oxygen Delivery Method Room Air Nasal Cannula Nasal Cannula Oxygen Flow Rate 2 2 02/21/24 19:24 02/21/24 21:42 02/22/24 04:58 Temperature 98.0 F 98.4 F Temperature Source Temporal Artery Scan Temporal Artery Scan Pulse Rate 74 66 Respiratory Rate 20 20 Blood Pressure 152/92 H 142/78 H Blood Pressure Mean 112 99 Blood Pressure Location Right Arm Left Arm Blood Pressure Position Supine Sitting O2 Sat by Pulse Oximetry 92 L 93 L Oxygen Delivery Method Nasal Cannula Nasal Cannula Nasal Cannula Oxygen Flow Rate 2 2 2 02/22/24 05:37 02/22/24 05:45 Temperature Temperature Source Pulse Rate Respiratory Rate Blood Pressure Blood Pressure Mean Blood Pressure Location Blood Pressure Position O2 Sat by Pulse Oximetry 93 L 93 L Oxygen Delivery Method Nasal Cannula Nasal Cannula Oxygen Flow Rate 2 2 Lab Results Lab Results: Lab Results: Last 24 Hours 02/22/24 02/20/24 05:35 04:37 WBC 8.67 RBC 4.02 L Hgb 12.3 L Hct 37.6 L MCV 93.5 MCH 30.6 MCHC 32.7 RDW Coeff of Salud 12.1 Plt Count 254 Immature Gran % (Auto) 0.2 Neut % (Auto) 76.6 H Lymph % (Auto) 17.0 [place] % (Auto) 5.8 Eos % (Auto) 0.3 Baso % (Auto) 0.1 Neut # (Auto) 6.6 Lymph # (Auto) 1.5 [place] # (Auto) 0.5 Eos # (Auto) 0.0 Baso # (Auto) 0.0 Immature Gran # (Auto) 0.0 Sodium 139.7 Potassium 3.81 Chloride 96.4 L Carbon Dioxide 37.0 H Anion Gap 10.11 BUN 38.1 H Creatinine 1.08 Estimated GFR (MDRD) 66.00 BUN/Creatinine Ratio 35.27 Glucose 109.8 H Calcium 8.86 Total Bilirubin 0.32 AST 45.1 ALT 13.5 Alkaline Phosphatase 55.6 L C-Reactive Prot, Quant 205 H Total Protein 7.61 Albumin 3.81 Globulin 3.80 Albumin/Globulin Ratio 1.00 Additional Comments Additional Comments: I have independently reviewed and interpreted the labs/EKGs/imaging ordered during this hospital stay. I have reviewed outside records that are available in our EMR that pertain to medical stay including imaging/notes/labs from previous visits. Active Medications Active Medications: Medications Generic Name Dose Route Start Last Admin Trade Name Freq PRN Reason Stop Dose Admin Acetaminophen 325 mg 02/19/24 13:43 02/20/24 09:40 Acetaminophen 325 Mg Tablet PO 325 mg Q4H PRN Administration FEVER/PAIN Hydrocodone Bitart/Acetaminophen 1 tab 02/21/24 11:16 02/22/24 11:22 Hydrocodone Bit/Acetaminophen 5/325 Mg Tablet PO 1 tab Q6HR PRN Administration MODERATE PAIN Amlodipine Besylate 5 mg 02/20/24 09:00 02/22/24 08:12 Amlodipine Besylate 5 Mg Tablet PO 5 mg DAILY SILVERIO Administration Enoxaparin Sodium 40 mg 02/19/24 13:30 02/22/24 08:13 Enoxaparin Sodium 40 Mg/0.4 Ml Syr SUBCUT 40 mg DAILY SILVERIO Administration Furosemide 20 mg 02/21/24 06:00 02/22/24 06:13 Furosemide 20 Mg Tablet PO 20 mg QDAC2 SILVERIO Administration Hydrochlorothiazide 12.5 mg 02/22/24 09:00 02/22/24 09:01 Hydrochlorothiazide 25 Mg Tablet PO 12.5 mg DAILY SILVERIO Administration Cefazolin Sodium/Dextrose 2 gm in 50 mls @ 75 mls/hr 02/19/24 16:00 02/22/24 08:55 Ancef 2 Gm/50 Ml D5w IV 02/22/24 15:59 75 mls/hr Q8H SILVERIO Administration Prednisone 40 mg 02/20/24 07:30 02/22/24 08:12 Prednisone 20 Mg Tablet PO 40 mg DAILYWM2 SILVERIO Administration Assessment (1) Acute gout: Status: Acute Code(s): M10.9 - Gout, unspecified SNOMED Code(s): 074785142 (2) Intractable neuropathic pain of left foot: Status: Acute Code(s): M79.2 - Neuralgia and neuritis, unspecified SNOMED Code(s): 068193799 (3) Ambulatory dysfunction: Status: Acute Code(s): R26.2 - Difficulty in walking, not elsewhere classified SNOMED Code(s): 776658180 Plan Plan: 1. Intractable left foot pain in setting of suspected acute gout flare however cannot r/o cellulitis - Improving, able to ambulate some today but with very antalgic gait - [place] prn - supportive care, ice, elevate - procal 0.58, continue ancef and prednisone 2. acute gout flare vs. cellulitis - plan as above - Has hx of gout, may need started on allopurinol outpatient 3. COPD - not in exacerbation - Cont home meds 4. Heart failure - unknown type, not in exacerbation - Continue lasix and hctz 5. PRISCILA, stage I - improved - Cr. 1.5 on admission BUN 47 - repeat labs in am 6. Hypertension - chronic - continue norvasc home meds DVT Prophylaxis: lovenox Dispo: Patient still unable to ambulate well due to pain, major fall risk, unsafe discharge plan, family pushing for swingbed. They'd like to avoid long term as it is not usually a great setting for him due to his hx of TBI. Therapy apprehensive due to patient's ability to retain information. Family offering to be present during therapy sessions for teaching. Discussed attempting swingbed but needing to show progress and family needing to be present for teaching by therapy to help continue to build on skills at home. Review Statement Review Statement: I have personally discussed and reviewed the patient's visit/currently labs/imaging/decision making with Dr. Man, my supervising attending. Greater that 50 minutes spent with patient, 50% of the time spent with this patient was devoted to counseling and coordination of care.
[2024-02-23 05:14] VITALS: BP 136/76; TEMP 97.5
[2024-02-23 05:39] LABS: BASOPHILS % (AUTO) 0.2 % (0.0-3.0); EOSINOPHILS % (AUTO) 0.2 % (0.0-7.0); HEMATOCRIT 38.7 % (42.0-52.0); HEMOGLOBIN 12.4 g/dl (14.0-18.0); IMMATURE GRANULOCYTE % (AUTO) 0.4 % (0.0-5.0); LYMPHOCYTES # (AUTO) 1.8 K/uL (0.60-3.4); LYMPHOCYTES % (AUTO) 20.8 (10.0-50.0); MEAN CORPUSCULAR HEMOGLOBIN 30.1 pg (27.0-31.0); MEAN CORPUSCULAR VOLUME 93.9 fl (80.0-94.0); MONOCYTES # (AUTO) 0.6 K/uL (0.4-2.0); MONOCYTES % (AUTO) 7.1 (0-10); NEUTROPHILS # (AUTO) 6.1 K/ul (2.0-6.9); NEUTROPHILS % (AUTO) 71.3 % (42.2-75.2); PLATELET COUNT 281 10^3/uL (140-440); RDW COEFFICIENT OF VARIATION 11.9 % (11.6-14.8); RED BLOOD COUNT 4.12 10^6/ul (4.70-6.10); WHITE BLOOD COUNT 8.55 K/ul (4.2-10.2)
[2024-02-23 06:01] LABS: ALANINE AMINOTRANSFERASE 13.5 U/L (0-50); ALBUMIN 3.66 g/dL (3.5-5.0); ALKALINE PHOSPHATASE 51.1 U/L (56-119); ASPARTATE AMINO TRANSFERASE 34.7 U/L (17-59); BILIRUBIN,TOTAL 0.34 mg/dL (0.2-1.3); BLOOD UREA NITROGEN 34.2 mg/dL (9-20); CALCIUM 8.72 mg/dL (8.4-10.2); CARBON DIOXIDE 39.6 mmol/L (22-30.0); CHLORIDE 95.3 mmol/L (98-107); CREATININE 0.99 mg/dL (0.60-1.10); GLUCOSE 106.3 mg/dL (74-106); POTASSIUM 3.62 mmol/L (3.5-5.1); SODIUM 137.2 mmol/L (134.5-145); TOTAL PROTEIN 7.32 g/dL (6.3-8.2)
[2024-02-23 07:38] VITALS: PULSE 68; RESP 16
--- NOTE | 2024-02-23 10:39 | DCSUM ---
Admission Date Admission Date: 02/19/24 Discharge Date Discharge Date: 02/23/24 Admission Diagnosis Admission Diagnosis: 1. Intractable left foot pain in setting of suspected acute gout flare however cannot r/o cellulitis 2. Acute gout flare vs. cellulitis Discharge Diagnosis Discharge Diagnosis: 1. Intractable left foot pain in setting of suspected acute gout flare however cannot r/o cellulitis - improved 2. Acute gout flare vs. cellulitis - improved 3. COPD - not in exacerbation 4. Heart failure - unknown type, not in exacerbation 5. PRISCILA, stage I - improved 6. Hypertension - chronic 7. Hx of TBI Hospital Provider Hospital Provider: STEVEN BERGER PA-C, [facility] Primary Care Physician Primary Care Physician: TIFFANIE MOODY Summary of History and Physical Summary of History and Physical: Patient is a 78 y/o male with a PMH of TBI, COPD, CHF, HTN, HLD, and morbid obesity who presents with complaints of left foot pain. Patient is poor historian so history is limited. Patient states pain, swelling and redness to left great toe started 4 days ago. Pain worse with walking and improves with rest. No fever/chills or myalgias. No chest pain or shortness of breath. ER workup showed elevated ESR at 72 as well as elevated uric acid level. X-ray showed arthritis. Patient was treated with IV toradol and morphine. Denies history of gout, denies alcohol use. Patient admitted to med surg for observation for intractable pain and further management. Hospital Course Subjective: Patient was treated with IV antibiotics and oral prednisone. Patient slowly progressed - able to bear weight, then stand, then walk. Still has an unsafe antalgic gait. Family requesting swingbed. States he does not do well in senior care setting historically and unsafe for home at this time. Has been participating with therapy and progressing. Family states they're willing to be present to help facilitate retaining information and safe practices. Will admit to swingbed today and taper steroids during stay. Appearance: Pleasant, No Apparent Distress and Alert HEENT: MMM and Supple CVS: No Murmur Abdomen: Soft, Non-Tender and No Distention Respiratory: No Accessory Muscle Use Additional Findings: +1 pitting edema to sae feet, erythema of left great toe is improved Vital Signs: Most Recent Vital Signs Temperature 97.5 F L 02/23/24 05:12 Temperature Source Temporal Artery Scan 02/23/24 05:12 Temperature Source Infrared 02/19/24 09:25 Pulse Rate 68 02/23/24 07:26 Respiratory Rate 16 02/23/24 07:26 Blood Pressure 136/76 02/23/24 05:12 Blood Pressure Mean 96 02/23/24 05:12 Blood Pressure Left Arm 127/68 02/19/24 12:18 Blood Pressure Location Right Arm 02/23/24 05:12 Blood Pressure Position Sitting 02/23/24 05:12 O2 Sat by Pulse Oximetry 97 02/23/24 05:12 Oxygen Delivery Method Nasal Cannula 02/23/24 07:26 Oxygen Flow Rate 2 02/23/24 07:26 Height 5 ft 9 in 02/21/24 09:09 Weight 133.6 kg 02/21/24 09:09 Telemetry Heart Rate 75 06/28/20 19:00 Telemetry SPO2 84 L 06/28/20 13:00 Imaging: EXAM: CHEST RADIOGRAPH TECHNIQUE: Single frontal chest radiograph. HISTORY: Leg swelling. COMPARISON: 06/27/2020 FINDINGS: The lungs are clear without focal consolidation. No pleural effusion or pneumothorax. The cardiomediastinal silhouette, obdulia and pulmonary vascular markings are within normal limits. No acute osseous abnormality. IMPRESSION: 1. No acute cardiopulmonary process. EXAM: LEFT FOOT RADIOGRAPH TECHNIQUE: 3 views of the left foot HISTORY: Pain and swelling. COMPARISON: None. FINDINGS: Severe first metatarsophalangeal osteoarthritis. No acute fracture or dislocation. Nonspecific forefoot soft tissue swelling. Moderate osteoarthritis at the great toe interphalangeal joint . No radiopaque foreign body. IMPRESSION: - No acute fracture or dislocation. 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 Lab Results Last 24 Hours: 02/23/24 05:03 WBC 8.55 RBC 4.12 L Hgb 12.4 L Hct 38.7 L MCV 93.9 MCH 30.1 MCHC 32.0 RDW Coeff of Salud 11.9 Plt Count 281 Immature Gran % (Auto) 0.4 Neut % (Auto) 71.3 Lymph % (Auto) 20.8 [place] % (Auto) 7.1 Eos % (Auto) 0.2 Baso % (Auto) 0.2 Neut # (Auto) 6.1 Lymph # (Auto) 1.8 [place] # (Auto) 0.6 Eos # (Auto) 0.0 Baso # (Auto) 0.0 Immature Gran # (Auto) 0.0 Sodium 137.2 Potassium 3.62 Chloride 95.3 L Carbon Dioxide 39.6 H Anion Gap 5.92 BUN 34.2 H Creatinine 0.99 Estimated GFR (MDRD) 73.00 BUN/Creatinine Ratio 34.54 Glucose 106.3 H Calcium 8.72 Total Bilirubin 0.34 AST 34.7 ALT 13.5 Alkaline Phosphatase 51.1 L Total Protein 7.32 Albumin 3.66 Globulin 3.66 Albumin/Globulin Ratio 1.00 Discharge Instructions Discharge Planning: Discharge Planning > [address] Enrrique Man Discharge Medications: Medications at Discharge (Home Meds & RX) Discharge Plan Discharge Discharge Orders: Discharge Patient (ONCE); Ordered 02/23/24 Ordered By: STEVEN BERGER Activity Restrictions/Additional Instructions: DISCHARGE TO SWINGBED Patient Disposition: DISCH W/I HOSP TO SWING BD Prescriptions: Continued hydrochlorothiazide 12.5 MG tablet 12.5 mg PO DAILY acetaminophen 325 mg Tablet 325 mg PO Q4H PRN (Reason: Fever Or Pain) Qty: 1 0RF amlodipine [Norvasc] 5 mg Tablet 5 mg PO DAILY Qty: 1 0RF furosemide [Lasix] 20 mg Tablet 20 mg PO DAILY Qty: 1 0RF Did you review [place] [employer] for ALL controlled substances?: Not Applicable Discussed opioids are addictive and Narcan is available by prescription or from pharmacy.: No Condition: Stable Referrals: TIFFANIE MOODY [Primary Care Provider] - 02/23/24 (phone visit, provider will call at end of day)
== END 2024-02-23 10:48 | disposition swing bed (61) | DRG 554 ==
LOC: ED 09:21 → MEDSURG B 09:21 → OBSVTOIN 11:20 → INTOOBSV 11:20 → MEDSURG B 12:15
PROVIDERS: ADMIT Hospitalist; ATTEND Physician Assistant
DX: N17.9 Acute kidney failure, unspecified; J44.9 Chronic obstructive pulmonary disease, unspecified; I50.9 Heart failure, unspecified; M10.9 Gout, unspecified; R26.2 Difficulty in walking, not elsewhere classified; M79.2 Neuralgia and neuritis, unspecified